=== PATIENT | male | born 1980 ===

== ENCOUNTER 2024-04-18 03:00 | Outpatient (CLI) | payer BC, SELFPAY ==
--- OUTSIDE RECORDS SUMMARY | 2024-04-18 03:03 | XMS_ITS | Continuity of Care Document ---
Author Name Unknown Organization [facility] Address [address] [place] [id number] Encounter [facility] FIN NBR [id number] Date(s): 10/20/22 - 10/20/[address] [address]- Discharge Disposition: Home or Self Care Attending Physician: Sandra Rayo APRN Admitting Physician: Sandra Rayo APRN
--- OUTSIDE RECORDS SUMMARY | 2024-04-18 03:03 | XMS_ITS | Continuity of Care Document ---
Author Name Unknown Organization [facility] Address [address] [place] [address] Encounter LTTL_OK FIN NBR [id number] Date(s): 03/02/24 - 03/05/24 [facility] [address] [place], [place] [address] Encounter Diagnosis Hematochezia(Discharge Diagnosis) - 03/03/24 Anemia due to blood loss(Discharge Diagnosis) - 03/03/24 Partial obstruction of colon(Discharge Diagnosis) - 03/02/24 Neoplasm of splenic flexure of colon(Discharge Diagnosis) - 03/02/24 Discharge Disposition: Home or Self Care Attending Physician: Julio Hermosillo MD Admitting Physician: Julio Hermosillo MD Allergies, Adverse Reactions, Alerts No Known Allergies Assessment and Plan Extracted from: Title:Discharge Note Author:Brian Palmer Date:03/05/24 Discharge Plan 1.??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 ??Has had no ongoing hematochezia.?Despite concern for partial colonic obstruction, he was able to tolerate a??colon prep??without issue.?? Intermittent colonoscopy yesterday which demonstrated a mass??in the region of the splenic flexure??which was??partially obstructing and??could not be traversed with the colonoscope. ??Biopsies were taken and the site was tattooed.?? We discussed the strategy for management. ??Given his young age and??significant family history, I recommend evaluation by a colorectal surgeon at a??cancer center.?? This will allow for appropriate consideration of genetic testing and??discussion of the extent of potential resection if he is at high risk for??synchronous or metachronous cancers.?Ace demonstrated good understanding with this plan. ??He is tolerating a diet well. ??I recommend that he continue??a low residue diet and??MiraLAX daily.?? In the absence of ongoing bleeding or??progression of obstructive symptoms, he we have the time to accommodate??further evaluation and discussion of surgical options.?? Will plan to discharge home??today. ??I will send an urgent referral to [facility] colorectal surgery as discussed.?? I will forward the pathology results from??colon biopsies??when available. Orders: MiraLax, 17 g = 1 packets, Oral, Powder-Recon, Daily, PRN constipation, First Dose: 03/05/24 8:39:00 EDT, Routine MiraLax, 17 g = 1 packets, Oral, Daily, PRN constipation, 0 Refill(s) Diet Order, 03/05/24 8:39:00 EDT, Low Residue Discharge Disposition, 03/05/24 10:20:00 EDT, Home Independently Discharge Patient, 03/05/24 10:20:00 EDT [facility] Nursing Task, 03/05/24 10:20:00 EDT, Stop date 03/05/24 10:20:00 EDT, Check with pharmacy / [facility] for home meds prior to discharge Follow Up With When Contact Information Julio Hermosillo MD Within 1 month, only if needed [facility] [address] [place] [id number]- Additional Instructions: Extracted from: Title:Progress/SOAP Note Author:Julio welsh MD Date:03/05/24 1.??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 ?? 2.??Partial obstruction of colon??K56.600 Ordered: Pathology Request, AP Specimen, RT Collect, Collected, 03/04/24 8:43:00 EDT, Once by TR Lab Collect, Print Label, Neoplasm of unspecified behavior of digestive system Iron deficiency anemia secondary to blood loss (chronic) Partial intestinal obstruction... ?? 3.??Iron deficiency anemia secondary to blood loss (chronic)??D50.0,??Anemia due to blood loss??D50.0 Ordered: Pathology Request, AP Specimen, RT Collect, Collected, 03/04/24 8:43:00 EDT, Once by TR Lab Collect, Print Label, Neoplasm of unspecified behavior of digestive system Iron deficiency anemia secondary to blood loss (chronic) Partial intestinal obstruction... ?? 4.??Hematochezia??K92.1 ??Ace Todd is a 43-year-old male??admitted with hematochezia, vomiting, and??CT evidence concerning for??neoplasm of the colon at splenic flexure causing partial obstruction.?He had symptomatic anemia for which she was transfused 2 units PRBCs. ??Has had no ongoing hematochezia.?Despite concern for partial colonic obstruction, he was able to tolerate a??colon prep??without issue.?? Intermittent colonoscopy yesterday which demonstrated a mass??in the region of the splenic flexure??which was??partially obstructing and??could not be traversed with the colonoscope. ??Biopsies were taken and the site was tattooed.?? We discussed the strategy for management. ??Given his young age and??significant family history, I recommend evaluation by a colorectal surgeon at a??cancer center.?? This will allow for appropriate consideration of genetic testing and??discussion of the extent of potential resection if he is at high risk for??synchronous or metachronous cancers.?Ace demonstrated good understanding with this plan. ??He is tolerating a diet well. ??I recommend that he continue??a low residue diet and??MiraLAX daily.?? In the absence of ongoing bleeding or??progression of obstructive symptoms, he we have the time to accommodate??further evaluation and discussion of surgical options.?? Will plan to discharge home??today. ??I will send an urgent referral to [facility] colorectal surgery as discussed.?? I will forward the pathology results from??colon biopsies??when available. Ordered: Pathology Request, AP Specimen, RT Collect, Collected, 03/04/24 8:43:00 EDT, Once by TR, Lab Collect, Print Label, Neoplasm of unspecified behavior of digestive system Iron deficiency anemia secondary to blood loss (chronic) Partial intestinal obstruction... ?? Orders: MiraLax, 17 g = 1 packets, Oral, Powder-Recon, Daily, PRN constipation, First Dose: 03/05/24 8:39:00 EDT, Routine Diet Order, 03/05/24 8:39:00 EDT, Low Residue Extracted from: Title:H & P Author:Julio Hermosillo MD Brennen e:03/02/24 1.??Partial obstruction of c toya??K56.600 Ordered: PSO Admit to Inpatient, [facility], Inpatient, Julio Hermosillo MD, 03/03/24 0:21:00 EDT, 03/03/24 0:21:00 EDT, 03/03/24 0:21:00 EDT, Less than 96 hours ?? 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 ??He has CT evidence of??partial colon obstruction. ??He is nontoxic-appearing and is passing flatus. ??His last bowel movement was primarily blood. ??He has had no constipation to the up to this point.?? Despite that, his CT is concerning for progressive obstruction.?? The??site of??obstruction is an area of thickening at the splenic flexure concerning for malignancy.?? I discussed these findings with Ace and his significant other.?? I am concerned that he has a??partial obstructing colon cancer and will need surgery.?? This will likely involve??diverting ostomy of some sort??with or without resection of the primary tumor??depending on its appearance intraoperatively.?Plan for admission,??bowel rest, IV fluid resuscitation,??serial hemoglobin,??and to complete staging workup??with CT chest prior to likely??surgery??tomorrow.?Ace demonstrated good understanding and agreement. Ordered: PSO Admit to Inpatient, [facility], Inpatient, Julio Hermosillo MD, 03/03/24 0:21:00 EDT, 03/03/24 0:21:00 EDT, 03/03/24 0:21:00 EDT, Less than 96 hours ?? Orders: acetaminophen, 1,000 mg = 100 mL, IV Piggyback, Injection, every 6 hr, PRN pain, mild, First Dose: 03/03/24 0:28:00 EDT, Routine HYDROmorphone, 0.25 mg = 0.25 mL, IV Push, Injection, every 2 hr, PRN pain, severe, First Dose: 03/03/24 0:28:00 EDT, Routine Lactated Ringers Injection 1,000 mL, Total Volume (mL): 1,000, 1,000 mL, Soln- IV, IV, 150 mL/hr, Start Date: 03/03/24 0:28:00 EDT, 61 kg, Populate Charting Weight From Order, 1.73, m2 naloxone, 0.1 mg = 0.25 mL, IV Push, Injection, every 5 min, PRN other (see comment), First Dose: 03/03/24 0:28:00 EDT, Routine ondansetron, 4 mg = 2 mL, IV Push, Vial, every 6 hr, PRN nausea/vomiting, First Dose: 03/03/24 0:28:00 EDT, Routine ondansetron, 4 mg = 1 tab, Oral, Tab-Dis, every 6 hr, PRN nausea/vomiting, First Dose: 03/03/24 0:28:00 EDT, Routine prochlorperazine, 5 mg = 1 mL, IV Push, Vial, every 4 hr, PRN nausea/vomiting, First Dose: 03/03/24 0:28:00 EDT, Routine prochlorperazine, 25 mg = 1 supp, Rectal, Supp, every 12 hr, PRN nausea/vomiting, First Dose: 03/03/24 0:28:00 EDT, Routine prochlorperazine, 10 mg = 2 tab, Oral, Tab, every 6 hr, PRN nausea/vomiting, First Dose: 03/03/24 0:28:00 EDT, Routine sodium chloride 0.9% flush, 10 mL, IV Flush, Injection, every 8 hr, First Dose: 03/03/24 1:00:00 EDT, Routine sodium chloride 0.9% flush, 10 mL, IV Flush, Injection, As Directed, First Dose: 03/03/24 0:28:00 EDT, Physician Stop, Routine ABO/Rh Echo, Blood, Routine, 03/03/24 6:00:00 EDT, Once, Lab Collect ABSC Echo, Blood, Routine, 03/03/24 6:00:00 EDT, Once, Lab Collect Ambulate, 03/03/24 0:28:00 EDT, Constant order Basic Metabolic Panel, Blood, Routine, 03/03/24 0:29:00 EDT, every morning, for 3 days, Lab Collect CBC w/ Diff, Blood, Routine, 03/03/24 0:29:00 EDT, every morning, for 3 days, Lab Collect CEA, Blood, Add On, 03/03/24 0:28:00 EDT, Once, Lab Collect Contraindicated, 03/03/24 0:28:00 EDT, Contraindicated due to Medical Diagnosis / Will re- evaluate as Patient condition changes Diet Order, 03/03/24 0:28:00 EDT, NPO Incentive Spirometry Nursing, 03/03/24 0:28:00 EDT Intake and Output, 03/03/24 0:28:00 EDT, every 12 hr (linda), q shift, 03/03/24 9:00:00 EDT Patient Condition, 03/03/24 0:28:00 EDT, Condition Good/ Stable Peripheral IV Care, 03/03/24 0:28:00 EDT, Stop date 03/03/24 0:28:00 EDT, Complete with shift assessments and PRN Peripheral IV Insertion, 03/03/24 0:28:00 EDT, Upon admission if not in place prior to admit Resuscitation Status, 03/03/24 0:28:00 EDT, Full Code Sequential Compression Devices (SCD's), 03/03/24 0:28:00 EDT, Constant Order, 03/03/24 0:28:00 EDT Sequential Compression Devices (SCD's), 03/03/24 0:28:00 EDT, Constant Order, 03/03/24 0:28:00 EDT Up ad Delisa, 03/03/24 0:28:00 EDT, Constant Order, at nurse's discretion, 03/03/24 0:28:00 EDT Vital Signs, 03/03/24 0:28:00 EDT, every 4 hr ([facility]) Future Appointments Diagnostic Tests Pending * Pathology Request 03/04/24 Functional Status 03/05/24 Living Environment Living Situation: Current Home Treatments: Home Devices/Equipment Professional Skilled Services: Special Services and Community Resources: None Sensory Deficits: Performed by: Camille Marquez-03/03/24 10:54:00 Living Situation: Home independently, Home with family care Current Home Treatments: Home Devices/Equipment Professional Skilled Services: Special Services and Community Resources: Sensory Deficits: Performed by: Felipe Floyd RN-03/03/24 02:04:00 Lives In Multilevel home Lives With Child(yumiko), Significant other Living Situation Home independently, Home with family longterm Barriers None 03/05/24 Special Services and Community Resources None 03/04/24 Lunch Percent 100 03/04/24 ADLs Independent Activity Status ADL Ambulating in room, HOB elevated Personal Care Provided Other: pt indepen dent with ADL's 03/04/24 Anti-Embolism Device Activity: Applied Anti-Embolism Site Condition: No complic ations 03/04/24 Antiembolism Device Intermittent pneumat ic compression devices, knee high, bilat Medications acetaminophen 500 mg oral tablet 500 mg = 1 tab, Oral, BID, PRN as needed for pain, # 100 tab, 0 Refill(s) Start Date: 03/03/24 Status: Ordered MiraLax 17 g = 1 packets, Oral, Daily, PRN constipation, 0 Refill(s) Start Date: 03/05/24 Status: Ordered pantoprazole 40 mg oral delayed release tablet 40 mg = 1 tab, Oral, Daily, 30 minutes before evening meal, X 30 days, # 30 tab, 11 Refill(s), 01/26/25 11:03:00 AM CDT, Pharmacy: [id number], 177.8, cm, 02/01/24 11:36:00 EDT, Height, 61, kg, 02/01/24 11:42:00 EDT, Weight Dosing Start Date: 02/01/24 Stop Date: 01/26/25 Status: Ordered Mental Status 03/02/24 Eye Opening Response [place] Spontaneous ly Best Verbal Response [place] Oriented Best Motor Response Moses Obeys comman ds [place] Coma Score 15 Problem List Condition Confirmation Course Effective Dates Status Health St atus Informant Family history of colon cancer in father Confirmed Active GERD (gastroesophageal reflux disease) Confirmed Active Hematochezia Confirmed Active Melena Confirmed Active Procedures Procedure Date Related Diagnosis Body Site Status Colonoscopy Biopsy 1 03/04/24 Comp leted 1auto-populated from documented surgical case Results Laboratory List Name Date Automated Diff 03/05/24 .Morphology (LTTL) 03/05/24 Basic Metabolic Panel (BMP) 03/05/24 CBC w/ Diff 03/05/24 Automated Diff 03/04/24 .Morphology (LTTL) 03/04/24 Basic Metabolic Panel (BMP) 03/04/24 CBC w/ Diff 03/04/24 Hemoglobin and Hematocrit 03/03/24 .Morphology (LTTL) 03/03/24 Automated Diff 03/03/24 Basic Metabolic Panel (BMP) 03/03/24 CBC w/ Diff 03/03/24 Red Blood Cells 03/03/24 ABO/Rh Echo 03/03/24 ABSC Echo (Antibody Screen Echo) 03/03/24 Urinalysis with Micro if Indicated and C ulture if Indicated 03/02/24 CEA 03/02/24 Lactic Acid 03/02/24 .Morphology (LTTL) 03/02/24 Comprehensive Metabolic Panel (CMP) 03/02 Lipase Level 03/02/24 Magnesium Level 03/02/24 Most recent to oldest [Reference Range]: 1 2 3 WBC [4.8-10.8 K/mcL] 6.2 K/mcL (03/05/24 6:00 AM) 5.8 K/mcL (03/04/24 6:14 AM) 6.1 K/mcL (03/03/24 8:00 AM) RBC [4.70-6.10 Million/mcL] 3.21 Million/mcL *LOW* (03/05/24 6:00 AM) 3.43 Million/mcL *LOW* (03/04/24 6:14 AM) 2.75 Million/mcL *LOW* (03/03/24 8:00 AM) Neutro Auto [42.2-75.2 %] 69.2 % (03/05/24 6:00 AM) 69.9 % (03/04/24 6:14 AM) 73.3 % (03/03/24 8:00 AM) Lymph Auto [20.5-51.1 %] 18.7 % *LOW* (03/05/24 6:00 AM) 21.2 % (03/04/24 6:14 AM) 19.4 % *LOW* (03/03/24 8:00 AM) [place] Auto [1.7-9.3 %] 10.1 % *HI* (03/05/24 6:00 AM) 6.9 % (03/04/24 6:14 AM) 6.1 % (03/03/24 8:00 AM) Basophil Auto [0.0-0.8 %] 0.3 % (03/05/24 6:00 AM) 0.6 % (03/04/24 6:14 AM) 0.4 % (03/03/24 8:00 AM) BUN [7-25 mg/dL] 5 mg/dL *LOW* (03/05/24 6:00 AM) 8 mg/dL (03/04/24 6:14 AM) 18 mg/dL (03/03/24 8:00 AM) UA Color [Yellow] Yellow (03/02/24 11:34 PM) Glucose Level [70-109 mg/dL] 110 mg/dL *HI* (03/05/24 6:00 AM) 84 mg/dL (03/04/24 6:14 AM) 111 mg/dL *HI* (03/03/24 8:00 AM) Potassium Level [3.5-5.1 mmol/L] 3.8 mmol/L (03/05/24 6:00 AM) 3.5 mmol/L (03/04/24 6:14 AM) 3.7 mmol/L (03/03/24 8:00 AM) Baso Absolute [0.0-0.2 K/mcL] 0.0 K/mcL (03/05/24 6:00 AM) 0.0 K/mcL (03/04/24 6:14 AM) 0.0 K/mcL (03/03/24 8:00 AM) MCV [80.0-94.0 fL] 78.2 fL *LOW* (03/05/24 6:00 AM) 79.1 fL *LOW* (03/04/24 6:14 AM) 76.5 fL *LOW* (03/03/24 8:00 AM) UA Urobilinogen [0.2] 0.2 (03/02/24 11:34 PM) RBC Morph [Normal] Abnormal *ABN* (03/05/24 6:00 AM) Abnormal *ABN* (03/04/24 6:14 AM) Abnormal *ABN* (03/03/24 8:00 AM) UA Bili [Negative] Negative (03/02/24 11:34 PM) CEA [0.1-3.0 ng/mL] 0.2 ng/mL 1 (03/02/24 9:40 PM) UA Ketones [Negative] 15 *ABN* (03/02/24 11:34 PM) AST [13-39 IntlUnit/L] 10 IntlUnit/L *LOW* (03/02/24 9:39 PM) ALT [7-52 IntlUnit/L] 11 IntlUnit/L (03/02/24 9:39 PM) MCHC [32.0-37.0 g/dL] 34.2 g/dL (03/05/24 6:00 AM) 33.4 g/dL (03/04/24 6:14 AM) 32.7 g/dL (03/03/24 8:00 AM) Osmolality [275-295 mOsm/kg] 281 mOsm/kg (03/05/24 6:00 AM) 275 mOsm/kg (03/04/24 6:14 AM) 282 mOsm/kg (03/03/24 8:00 AM) Sodium Level [136-145 mmol/L] 142 mmol/L (03/05/24 6:00 AM) 139 mmol/L (03/04/24 6:14 AM) 140 mmol/L (03/03/24 8:00 AM) UA Leuk Est [Negative] Negative (03/02/24 11:34 PM) Lymph Absolute [1.2-3.4 K/mcL] 1.2 K/mcL (03/05/24 6:00 AM) 1.2 K/mcL (03/04/24 6:14 AM) 1.2 K/mcL (03/03/24 8:00 AM) UA Nitrite [Negative] Negative (03/02/24 11:34 PM) UA Glucose [Negative] Negative (03/02/24 11:34 PM) Hct [42.0-52.0 %] 25.1 % *LOW* (03/05/24 6:00 AM) 27.1 % *LOW* (03/04/24 6:14 AM) 28.5 % *LOW* (03/03/24 4:25 PM) Microcyte 1+ *ABN* (03/05/24 6:00 AM) 1+ *ABN* (03/04/24 6:14 AM) 1+ *ABN* (03/03/24 8:00 AM) Lipase Level [11-82 unit/L] 6 unit/L 2 *LOW* (03/02/24 9:39 PM) Hypochromia 1+ *ABN* (03/05/24 6:00 AM) 1+ *ABN* (03/04/24 6:14 AM) 1+ *ABN* (03/03/24 8:00 AM) Calcium Level [8.6-10.3 mg/dL] 8.0 mg/dL *LOW* (03/05/24 6:00 AM) 8.0 mg/dL *LOW* (03/04/24 6:14 AM) 7.9 mg/dL *LOW* (03/03/24 8:00 AM) [place] Absolute [0.1-0.6 K/mcL] 0.6 K/mcL (03/05/24 6:00 AM) 0.4 K/mcL (03/04/24 6:14 AM) 0.4 K/mcL (03/03/24 8:00 AM) Albumin Level [3.5-5.7 g/dL] 3.5 g/dL (03/02/24 9:39 PM) Protein Total [6.4-8.9 g/dL] 6.5 g/dL (03/02/24 9:39 PM) UA Protein [Negative] Negative (03/02/24 11:34 PM) MCH [27.0-31.0 pg] 26.8 pg *LOW* (03/05/24 6:00 AM) 26.4 pg *LOW* (03/04/24 6:14 AM) 25.0 pg *LOW* (03/03/24 8:00 AM) Magnesium Level [1.9-2.7 mg/dL] 2.0 mg/dL (03/02/24 9:39 PM) Neutro Absolute [1.4-6.5 K/mcL] 4.3 K/mcL (03/05/24 6:00 AM) 4.0 K/mcL (03/04/24 6:14 AM) 4.5 K/mcL (03/03/24 8:00 AM) Bilirubin Total [0.3-1.0 mg/dL] 1.1 mg/dL *HI* (03/02/24 9:39 PM) Hgb [14.0-18.0 g/dL] 8.6 g/dL *LOW* (03/05/24 6:00 AM) 9.1 g/dL *LOW* (03/04/24 6:14 AM) 9.5 g/dL 3 *LOW* (03/03/24 4:25 PM) Alk Phos [34-104 IntlUnit/L] 114 IntlUnit/L *HI* (03/02/24 9:39 PM) UA Blood [Negative] Negative (03/02/24 11:34 PM) MPV [7.4-10.4 fL] 6.7 fL *LOW* (03/05/24 6:00 AM) 6.5 fL *LOW* (03/04/24 6:14 AM) 6.3 fL *LOW* (03/03/24 8:00 AM) UA Spec Grav [1.001-1.030] 1.010 (03/02/24 11:34 PM) Polychrom 1+ *ABN* (03/03/24 8:00 AM) Platelets [130-400 K/mcL] 226 K/mcL (03/05/24 6:00 AM) 230 K/mcL (03/04/24 6:14 AM) 260 K/mcL (03/03/24 8:00 AM) CO2 [21-31 mmol/L] 31 mmol/L (03/05/24 6:00 AM) 26 mmol/L (03/04/24 6:14 AM) 25 mmol/L (03/03/24 8:00 AM) Eos Absolute [0.0-0.2 K/mcL] 0.1 K/mcL (03/05/24 6:00 AM) 0.1 K/mcL (03/04/24 6:14 AM) 0.0 K/mcL (03/03/24 8:00 AM) Lactic Acid Lvl [0.5-2.2 mmol/L] 1.1 mmol/L (03/02/24 9:40 PM) UA pH [5.00-9.00] 5.50 (03/02/24 11:34 PM) UA Appear [Clear] Clear (03/02/24 11:34 PM) Chloride Level [98-107 mmol/L] 107 mmol/L (03/05/24 6:00 AM) 106 mmol/L (03/04/24 6:14 AM) 109 mmol/L *HI* (03/03/24 8:00 AM) RBC Product Ready Done (03/03/24 6:45 AM) RDW-CV [11.5-14.5 %] 15.4 % *HI* (03/05/24 6:00 AM) 15.0 % *HI* (03/04/24 6:14 AM) 14.6 % *HI* (03/03/24 8:00 AM) A/G Ratio [1.0-2.5 g/dL] 1.2 g/dL (03/02/24 9:39 PM) BUN/Creat Ratio [8.0-20.0] 7.1 *LOW* (03/05/24 6:00 AM) 11.4 (03/04/24 6:14 AM) 22.5 *HI* (03/03/24 8:00 AM) Globulin [2.3-3.5 g/dL] 3.0 g/dL (03/02/24 9:39 PM) Slide Review Morph Only (03/05/24 6:00 AM) Morph Only (03/04/24 6:14 AM) Morph Only (03/03/24 8:00 AM) Urine Srce Clean Catch (03/02/24 11:34 PM) Plt Large Few *ABN* (03/04/24 6:14 AM) Few *ABN* (03/02/24 9:39 PM) Anisocyte 1+ (03/03/24 8:00 AM) Creatinine Level [0.70-1.30 mg/dL] 0.70 mg/dL (03/05/24 6:00 AM) 0.70 mg/dL (03/04/24 6:14 AM) 0.80 mg/dL (03/03/24 8:00 AM) Plt Estimation Normal (03/05/24 6:00 AM) Normal (03/04/24 6:14 AM) Normal (03/03/24 8:00 AM) ABO/Rh Echo A POS *Unknown* (03/03/24 6:07 AM) Anion Gap [3.0-12.0] 4.0 (03/05/24 6:00 AM) 7.0 (03/04/24 6:14 AM) 6.0 (03/03/24 8:00 AM) Eos, Auto [0.00-3.00 %] 1.70 % (03/05/24 6:00 AM) 1.40 % (03/04/24 6:14 AM) 0.80 % (03/03/24 8:00 AM) eGFR CKD-EPI [>=60 mL/min/1.73 m2] 117 mL/min/1.73 m2 (03/05/24 6:00 AM) 117 mL/min/1.73 m2 (03/04/24 6:14 AM) 112 mL/min/1.73 m2 (03/03/24 8:00 AM) ABSC Echo Negative ABSC (03/03/24 6:07 AM) 1Interpretive Data: The concentration of Carcinoembryonic Antigen??(CEA) determined from different manufactures and assay methods will vary due to differences in the method and reagent specificity. Values obtained by different methods cannot be used interchangeably and may not be comparable. This deepak Kaitlin Luann Access paramagnetic particle, chemiluminescent immunoassay. 2Interpretive Data: A-ictrkv-p-benzoquinone imine (meabolite of Acetaminophen) will generate erroneously low lipase results in samples for patients that have taken toxic doses of acetaminophen. 3Result Comment: Results verified by repeat analysis. Radiology Reports * Exam Date Time Procedure Performing Provider Status 03/03/24 12:[address] Chest w/ Contrast Nakia Guidry; Auth (Verified) Notes: (CT Chest w/ Contrast) Reason For Exam: Evaluate for metstatis CT Chest w/ Contrast PROCEDURE INFORMATION: Exam: CT Chest With Contrast; Diagnostic Exam date and time: 03/03/2024 12:27 AM Age: 43 years old Clinical indication: Condition or disease; Other: Evaluate for mets; Additional info: Evaluate for metstatis TECHNIQUE: Imaging protocol: Diagnostic computed tomography of the chest with contrast. Radiation optimization: All CT scans at this facility use at least one of these dose optimization techniques: automated exposure control; mA and/or kV adjustment per patient size (includes targeted exams where dose is matched to clinical indication); or iterative reconstruction. Contrast material: ISOVUE 300; Contrast volume: 100 ml; Contrast route: INTRAVENOUS (IV); COMPARISON: CT ABD/PELVIS W CONTRAST 03/02/2024 9:42 PM FINDINGS: Lungs: No evidence of nodules or metastatic disease. No evidence endobronchial lesion. No evidence of focal parenchymal air space disease. Pleural spaces: No pneumothorax. No pleural effusion. Heart: No evidence of filling defects in the cardiac chambers. Heart appears within normal limits. No significant pericardial effusion. Lymph nodes: Unremarkable. No enlarged lymph nodes. Vasculature: No evidence of thoracic aortic dissection. Bones/joints: Unremarkable. No acute fracture. Soft tissues: Unremarkable. IMPRESSION: 1. No evidence of metastatic disease. 2. No evidence of focal consolidation. THIS DOCUMENT HAS BEEN ELECTRONICALLY SIGNED BY FRANCHESCA ROBLES MD on 03/03/2024 12:53 AM Final Signed by: Franchesca Robles MD Signed (Electronic Signature): 03/03/2024 0:53 am * Exam Date Time Procedure Performing Provider Status 03/02/24 9:[address] Abdomen and Pelvis w/ Contrast Jennie Brennan od; Auth (Verified) Notes: (CT Abdomen and Pelvis w/ Contrast) Reason For Exam: abd pain RLQ CT Abdomen and Pelvis w/ Contrast PROCEDURE INFORMATION: Exam: CT Abdomen And Pelvis With Contrast Exam date and time: 03/02/2024 9:42 PM Age: 43 years old Clinical indication: Abdominal pain; Localized; Right lower quadrant (rlq); Additional info: Abd pain rlq TECHNIQUE: Imaging protocol: Computed tomography of the abdomen and pelvis with contrast. Radiation optimization: All CT scans at this facility use at least one of these dose optimization techniques: automated exposure control; mA and/or kV adjustment per patient size (includes targeted exams where dose is matched to clinical indication); or iterative reconstruction. Contrast material: ISOVUE 300; Contrast volume: 100 ml; Contrast route: INTRAVENOUS (IV); COMPARISON: No relevant prior studies available. FINDINGS: Liver: Normal. No mass. Gallbladder and bile ducts: Normal. No calcified stones. No ductal dilation. Pancreas: Normal. No ductal dilation. Spleen: Normal. No splenomegaly. Adrenal glands: Normal. No mass. Kidneys and ureters: Normal. No hydronephrosis. Stomach and bowel: Moderate air-fluid distension of the cecum, ascending, transverse colon up to site 6 cm length area circumferential up to 13 mm wall thickening and inhomogeneity of the surrounding fat involving splenic flexure colon; colon distal to mass collapsed. More proximal colon prior to site of wall thickening partially obstructed (lumen appears patent) by stricturing of this area. Cecum distended up to 8 cm. No evidence of small bowel obstruction. Appendix: Visualized portion appendix normal. Intraperitoneal space: Unremarkable. No free air. No significant fluid collection. Vasculature: Unremarkable. No abdominal aortic aneurysm. Lymph nodes: Unremarkable. No enlarged lymph nodes. Urinary bladder: Unremarkable as visualized. Reproductive: Prostate appears within normal limits. Bones/joints: Unremarkable. No acute fracture. Soft tissues: Unremarkable. IMPRESSION: 1. Focal circumferential mass vs inflammation involving splenic flexure colon contributing to partial obstruction more proximal colon. 2. No evidence of small bowel obstruction. THIS DOCUMENT HAS BEEN ELECTRONICALLY SIGNED BY FRANCHESCA ROBLES MD on 03/02/2024 10:27 PM Final Signed by: Franchesca Robles MD Signed (Electronic Signature): 03/02/2024 10:27 pm Vital Signs Most recent to oldest [Reference Range]: 1 2 3 Temperature Temporal Artery [36-38 Deg C] 36.9 Deg C (03/05/24 7:40 AM) 36.7 Deg C (03/05/24 4:02 AM) 37.1 Deg C (03/04/24 11:44 PM) Temperature Temporal Artery (DegF) [97.3-100 Deg F] 98.06 Deg F (03/05/24 4:02 AM) 98.78 Deg F (03/04/24 11:44 PM) 97.34 Deg F (03/04/24 7:18 PM) Peripheral Pulse Rate [60-100 bpm] 78 bpm (03/05/24 7:40 AM) 74 bpm (03/05/24 4:02 AM) 81 bpm (03/04/24 11:44 PM) Heart Rate Monitored [60-100 bpm] 82 bpm (03/04/24 1:41 PM) 76 bpm (03/04/24 12:36 PM) 80 bpm (03/04/24 11:33 AM) Respiratory Rate [12-24 br/min] 18 br/min (03/05/24 7:40 AM) 18 br/min (03/05/24 4:02 AM) 20 br/min (03/04/24 11:44 PM) Blood Pressure [90-140/60-90 mmHg] 103/71mmHg (03/05/24 7:40 AM) 96/62mmHg (03/05/24 4:02 AM) 94/61mmHg (03/04/24 11:44 PM) Mean Arterial Pressure, Cuff [65-140 mmHg] 73 mmHg (03/05/24 4:02 AM) 72 mmHg (03/04/24 11:44 PM) 74 mmHg (03/04/24 7:18 PM) Mean Arterial Pressure Cuff 75 mmHg (03/04/24 1:41 PM) 82 mmHg (03/04/24 11:33 AM) 74 mmHg (03/04/24 10:42 AM) Blood Pressure Location Right arm (03/04/24 7:18 PM) Right arm (03/04/24 3:27 PM) Left arm (03/04/24 1:41 PM) Blood Pressure Method Automatic (03/04/24 7:18 PM) Automatic (03/04/24 1:41 PM) Automatic (03/04/24 12:36 PM) Weight 61 kg (03/02/24 9:04 PM) Weight Dosing 61.000 kg (03/02/24 9:04 PM) Height 177 cm (03/02/24 9:04 PM) Body Mass Index 19.47 kg/m2 (03/02/24 9:04 PM) Social History Social History Type Response Tobacco Never tobacco user T obacco Use:. [address] [facility] Discharge Instructions Patient Education 03/05/2024 09:27:12 Colonoscopy, Adult, Care After Colonoscopy, Adult, Care After The following information offers guidance on how to care for yourself after your procedure. Your health care provider may also give you more specific instructions. If you have problems or questions, contact your health care provider. What can I expect after the procedure? After the procedure, it is common to have: ??? A small amount of blood in your stool for 24 hours after the procedure. ??? Some gas. ??? Mild cramping or bloating of your abdomen. Follow these instructions at home: Eating and drinking ??? Drink enough fluid to keep your urine pale yellow. ??? Follow instructions from your health care provider about eating or drinking restrictions. ??? Resume your normal diet as told by your health care provider. Avoid heavy or fried foods that are hard to digest. Activity ??? Rest as told by your health care provider. ??? Avoid sitting for a long time without moving. Get up to take short walks every 1???2 hours. This is important to improve blood flow and breathing. Ask for help if you feel weak or unsteady. ??? Return to your normal activities as told by your health care provider. Ask your health care provider what activities are safe for you. Managing cramping and bloating ??? Try walking around when you have cramps or feel bloated. ??? If directed, apply heat to your abdomen as told by your health care provider. Use the heat source that your health care provider recommends, such as a moist heat pack or a heating pad. ??? Place a towel between your skin and the heat source. ??? Leave the heat on for 20???30 minutes. ??? Remove the heat if your skin turns bright red. This is especially important if you are unable to feel pain, heat, or cold. You have a greater risk of getting burned. General instructions ??? If you were given a sedative during the procedure, it can affect you for several hours. Do not drive or operate machinery until your health care provider says that it is safe. ??? For the first 24 hours after the procedure: ??? Do not sign important documents. ??? Do not drink alcohol. ??? Do your regular daily activities at a slower pace than normal. ??? Eat soft foods that are easy to digest. ??? Take fsoc-jke-wbdsdlf and prescription medicines only as told by your health care provider. ??? Keep all follow-up visits. This is important. Contact a health care provider if: ??? You have blood in your stool 2???3 days after the procedure. Get help right away if: ??? You have more than a small spotting of blood in your stool. ??? You have large blood clots in your stool. ??? You have swelling of your abdomen. ??? You have nausea or vomiting. ??? You have a fever. ??? You have increasing pain in your abdomen that is not relieved with medicine. These symptoms may be an emergency. Get help right away. Call 911. ??? Do not wait to see if the symptoms will go away. ??? Do not drive yourself to the hospital. Summary ??? After the procedure, it is common to have a small amount of blood in your stool. You may also have mild cramping and bloating of your abdomen. ??? If you were given a sedative during the procedure, it can affect you for several hours. Do not drive or operate machinery until your health care provider says that it is safe. ??? Get help right away if you have a lot of blood in your stool, nausea or vomiting, a fever, or increased pain in your abdomen. This information is not intended to replace advice given to you by your health care provider. Make sure you discuss any questions you have with your health care provider. Document Revised: 05/24/2022 Document Reviewed: 05/24/2022 [employer] Patient Education ?? 2022 [employer]. 03/05/2024 09:22:47 Gastrointestinal Bleeding Gastrointestinal Bleeding Gastrointestinal (GI) bleeding is bleeding somewhere along the digestive tract, between the mouth and the anus. The digestive tract includes the mouth, esophagus, stomach, small intestine, large intestine, and anus. The large intestine is often called the colon. GI bleeding can be caused by various problems. The severity of these problems can be mild, serious,or life-threatening. If you have GI bleeding, you may find blood in your stools (feces), you may have black stools, or you may vomit blood. You may need to stay in the hospital if there is a lot of bleeding. What are the causes? This condition may be caused by: ??? Inflammation, irritation, or swelling of the esophagus (esophagitis). The esophagus is part of the body that moves food from your mouth to your stomach. ??? Swollen veins in the rectum (hemorrhoids). ??? Tears in the anus (anal fissures). The tears are often caused by passing hard stool. ??? Pouches that form on the colon and may bleed (diverticulosis). ??? Inflammation in areas with diverticulosis. This is called diverticulitis.This can cause pain, fever, and bloody stools. ??? Growths (polyps) or cancer. Colon cancer often starts out as precancerous polyps. ??? Gastritis and ulcers. These may cause bleeding in the upper GI tract, near the stomach. What increases the risk? You are more likely to develop this condition if: ??? You have an infection in your stomach from a type of bacteria called Helicobacter pylori. ??? You take certain medicines, such as: ??? NSAIDs. ??? Aspirin. ??? Selective serotonin reuptake inhibitors (SSRIs). ??? Steroids. ??? Antiplatelet or anticoagulant medicines. ??? You smoke. ??? You drink alcohol. What are the signs or symptoms? Common symptoms of this condition include: ??? Bright red blood in your vomit, or vomit that looks like coffee grounds. ??? Bloody, black, or tarry stools. ??? Bleeding from the lower GI tract will usually cause red or maroon blood in the stools. ??? Bleeding from the upper GI tract may cause black, tarry stools that are often stronger smellingthan usual. ??? In certain cases, if the bleeding is fast enough, the stools may be red. ??? Pain or cramping in the abdomen. How is this diagnosed? This condition may be diagnosed based on: ??? Your medical history and a physical exam. ??? Various tests, such as: ??? Blood tests. ??? Stool tests. ??? X-rays and other imaging tests. ??? Esophagogastroduodenoscopy (EGD). In this test, a flexible, lighted tube is used to look at your esophagus, stomach, and small intestine. ??? Colonoscopy. In this test, a flexible, lighted tube is used to look at your colon. How is this treated? Treatment for this condition depends on the cause of the bleeding. For example: ??? For bleeding from the esophagus, stomach, small intestine, or colon, the health care provider may do a procedure to stop bleeding during your EGD or colonoscopy. ??? Inflammation or infection of the colon can be treated with medicines. ??? Certain rectal problems can be treated with creams, suppositories, or warm baths. ??? Medicines may be given to reduce acid in your stomach. ??? Surgery is sometimes done. ??? Blood transfusions are sometimes needed if a lot of blood has been lost. If there is a lot of bleeding, you will need to stay in the hospital for observation. If bleeding is mild, you may be allowed to go home. Follow these instructions at home: ??? Take wxbs-cnm-krbczcc and prescription medicines only as told by your health care provider. ??? Eat foods that are high in fiber, such as beans, whole grains, and fresh fruits and vegetables.This will help to keep your stools soft. Eating 1???3 prunes each day works well for many people. ??? Drink enough fluid to keep your urine pale yellow. ??? Keep all follow-up visits. This is important. Contact a health care provider if: ??? Your symptoms do not improve with treatment. Get help right away if: ??? Your bleeding does not stop. ??? You feel light-headed or you faint. ??? You feel weak. ??? You have severe cramps in your back or abdomen. ??? You pass large blood clots in your stool. ??? Your symptoms are getting worse. ??? You have chest pain or fast heartbeats. These symptoms may be an emergency. Get help right away. Call 911. ??? Do not wait to see if the symptoms will go away. ??? Do not drive yourself to the hospital. Summary ??? Gastrointestinal (GI) bleeding is bleeding somewhere along the digestive tract, between the mouth and anus. GI bleeding can be caused by various problems. ??? Treatment for this condition depends on the cause of the bleeding. ??? Take heei-dhs-brtnmod and prescription medicines only as told by your health care provider. ??? Get help right away if your bleeding increases, your symptoms are getting worse, or you have new symptoms. ??? Keep all follow-up visits. This is important. This information is not intended to replace advice given to you by your health care provider. Make sure you discuss any questions you have with your health care provider. Document Revised: 05/05/2022 Document Reviewed: 05/05/2022 [employer] Patient Education ?? 2022 [employer]. Follow Up Care 03/02/2024 20:55:58 With:Julio Hermosillo MD Address: [facility] [address] [place] [address] When:1 month only if needed Pharmacology Note * Carl Barnett: PERFORM Event Display: Pharmacy Note Authored Date: [id number] med hx via SS review and pt interview. pt reprots only taking 2 protonix 40mg daily and PRN tylenol. Discharge instructions * Shahnaz Bain: PERFORM Event Display: Discharge Instructions Authored Date: [id number] ACE TODD :1980 Age:43 years Sex:Male Visit Date:03/02/2024 Hospital Discharge Instructions We would like to thank you for allowing us to assist you with your healthcare needs. The following includes patient education materials and information regarding your injury/illness. Your Next Steps Instructions From Your Care Team An urgent referral to [facility] colorectal surgery will be made??for ongoing evaluation and??management of colon??tumor You should continue a??low residue diet??as tolerated.?Protein shakes or??nutritional supplements like boost or Ensure are helpful. Take a stool softener like MiraLAX daily Call or be seen emergently if you develop??lightheadedness, dizziness,??recurrent??bloody stools, or vomiting Discharge Orders Discharge Disposition, 03/05/24 10:20:00 EDT, Home Independently Scheduled Future Appointments Sunday 3:00 PM EDT ?? Sunday 9:30 AM EDT ?? Follow Up Appointments Follow Up with??Julio Hermosillo MD When:??Within 1 month, only if needed Where: [facility] [address] [place], [place] [id number]- The Following Services Have Been Arranged for You Special Services and Community Resources - None Medications What How Much When Why Instructions Next Dose New polyethylene glycol 3350 (MiraLax) 17 Gram Oral (given by mouth) Every day as needed for constipation Unchanged acetaminophen (acetaminophen 500 mg oral tablet) 1 tab Oral (given by mouth) 2 times a day as needed for as needed for pain Unchanged pantoprazole (pantoprazole 40 mg oral delayed release tablet) 1 tab Oral (given by mouth) Every day GI (gastrointestinal bleed) Duration: 30 Days 30 minutes before evening meal ?? Your Summary Your Care Team Admitting Physician - Julio Hermosillo MD Attending Physician - Julio Hermosillo MD Your Diagnosis Neoplasm of splenic flexure of colon Partial obstruction of colon Iron deficiency anemia secondary to blood loss (chronic) Hematochezia Anemia due to blood loss Problems Ongoing - Any problem that you are currently receiving treatment for. Family history of colon cancer in father GERD (gastroesophageal reflux disease) Hematochezia Melena Tobacco user Procedures Performed ???Colonoscopy Biopsy (03/04/2024) Tests Performed/Pending .Morphology (LTTL) ABO/Rh Echo Antibody Screen Echo Automated Diff BMP CBC w/ Diff CEA CMP Crossmatch Hemoglobin and Hematocrit Lactic Acid Lipase Level Magnesium Level Pathology Request?-- Results Pending -- Red Blood Cells Urinalysis with Micro if Indicated and Culture if Indicated CT Abdomen and Pelvis w/ Contrast CT Chest w/ Contrast Discharge Vitals Temperature??(Temporal Artery) 98.4 ??F (36.9 ??C) Heart Rate??(Peripheral) 78 Respiratory Rate?? 18 Blood Pressure?? 103/71?? SpO2?? 97% Allergies No Known Allergies Education Materials Colonoscopy, Adult, Care After The following information offers guidance on how to care for yourself after your procedure. Your health care provider may also give you more specific instructions. If you have problems or questions, contact your health care provider. What can I expect after the procedure? After the procedure, it is common to have: ? A small amount of blood in your stool for 24 hours after the procedure. ? Some gas. ? Mild cramping or bloating of your abdomen. Follow these instructions at home: Eating and drinking ? Drink enough fluid to keep your urine pale yellow. ? Follow instructions from your health care provider about eating or drinking restrictions. ? Resume your normal diet as told by your health care provider. Avoid heavy or fried foods that are hard to digest. Activity ? Rest as told by your health care provider. ? Avoid sitting for a long time without moving. Get up to take short walks every 1???2 hours. This isimportant to improve blood flow and breathing. Ask for help if you feel weak or unsteady. ? Return to your normal activities as told by your health care provider. Ask your health care provider what activities are safe for you. Managing cramping and bloating ? Try walking around when you have cramps or feel bloated. ? If directed, apply heat to your abdomen as told by your health care provider. Use the heat source that your health care provider recommends, such as a moist heat pack or a heating pad. ? Place a towel between your skin and the heat source. ? Leave the heat on for 20???30 minutes. ? Remove the heat if your skin turns bright red. This is especially important if you are unable to feel pain, heat, or cold. You have a greater risk of getting burned. General instructions ? If you were given a sedative during the procedure, it can affect you for several hours. Do not drive or operate machinery until your health care provider says that it is safe. ? For the first 24 hours after the procedure: ? Do not sign important documents. ? Do not drink alcohol. ? Do your regular daily activities at a slower pace than normal. ? Eat soft foods that are easy to digest. ? Take gryo-zlp-bzfncpx and prescription medicines only as told by your health care provider. ? Keep all follow-up visits. This is important. Contact a health care provider if: ? You have blood in your stool 2???3 days after the procedure. Get help right away if: ? You have more than a small spotting of blood in your stool. ? You have large blood clots in your stool. ? You have swelling of your abdomen. ? You have nausea or vomiting. ? You have a fever. ? You have increasing pain in your abdomen that is not relieved with medicine. These symptoms may be an emergency. Get help right away. Call 911. ? Do not wait to see if the symptoms will go away. ? Do not drive yourself to the hospital. Summary ? After the procedure, it is common to have a small amount of blood in your stool. You may also have mild cramping and bloating of your abdomen. ? If you were given a sedative during the procedure, it can affect you for several hours. Do not drive or operate machinery until your health care provider says that it is safe. ? Get help right away if you have a lot of blood in your stool, nausea or vomiting, a fever, or increased pain in your abdomen. This information is not intended to replace advice given to you by your health care provider. Make sure you discuss any questions you have with your health care provider. Document Revised: 05/24/2022 Document Reviewed: 05/24/2022 [employer] Patient Education ?? [employer] Gastrointestinal Bleeding Gastrointestinal (GI) bleeding is bleeding somewhere along the digestive tract, between the mouth and the anus. The digestive tract includes the mouth, esophagus, stomach, small intestine, large intestine, and anus. The large intestine is often called the colon. GI bleeding can be caused by various problems. The severity of these problems can be mild, serious,or life-threatening. If you have GI bleeding, you may find blood in your stools (feces), you may have black stools, or you may vomit blood. You may need to stay in the hospital if there is a lot of bleeding. What are the causes? This condition may be caused by: ? Inflammation, irritation, or swelling of the esophagus (esophagitis). The esophagus is part of the body that moves food from your mouth to your stomach. ? Swollen veins in the rectum (hemorrhoids). ? Tears in the anus (anal fissures). The tears are often caused by passing hard stool. ? Pouches that form on the colon and may bleed (diverticulosis). ? Inflammation in areas with diverticulosis. This is called diverticulitis.This can cause pain, fever, and bloody stools. ? Growths (polyps) or cancer. Colon cancer often starts out as precancerous polyps. ? Gastritis and ulcers. These may cause bleeding in the upper GI tract, near the stomach. What increases the risk? You are more likely to develop this condition if: ? You have an infection in your stomach from a type of bacteria called Helicobacter pylori. ? You take certain medicines, such as: ? NSAIDs. ? Aspirin. ? Selective serotonin reuptake inhibitors (SSRIs). ? Steroids. ? Antiplatelet or anticoagulant medicines. ? You smoke. ? You drink alcohol. What are the signs or symptoms? Common symptoms of this condition include: ? Bright red blood in your vomit, or vomit that looks like coffee grounds. ? Bloody, black, or tarry stools. ? Bleeding from the lower GI tract will usually cause red or maroon blood in the stools. ? Bleeding from the upper GI tract may cause black, tarry stools that are often stronger smelling than usual. ? In certain cases, if the bleeding is fast enough, the stools may be red. ? Pain or cramping in the abdomen. How is this diagnosed? This condition may be diagnosed based on: ? Your medical history and a physical exam. ? Various tests, such as: ? Blood tests. ? Stool tests. ? X-rays and other imaging tests. ? Esophagogastroduodenoscopy (EGD). In this test, a flexible, lighted tube is used to look at your esophagus, stomach, and small intestine. ? Colonoscopy. In this test, a flexible, lighted tube is used to look at your colon. How is this treated? Treatment for this condition depends on the cause of the bleeding. For example: ? For bleeding from the esophagus, stomach, small intestine, or colon, the health care provider may do a procedure to stop bleeding during your EGD or colonoscopy. ? Inflammation or infection of the colon can be treated with medicines. ? Certain rectal problems can be treated with creams, suppositories, or warm baths. ? Medicines may be given to reduce acid in your stomach. ? Surgery is sometimes done. ? Blood transfusions are sometimes needed if a lot of blood has been lost. If there is a lot of bleeding, you will need to stay in the hospital for observation. If bleeding is mild, you may be allowed to go home. Follow these instructions at home: ? Take vjyq-nym-xgeznis and prescription medicines only as told by your health care provider. ? Eat foods that are high in fiber, such as beans, whole grains, and fresh fruits and vegetables. This will help to keep your stools soft. Eating 1???3 prunes each day works well for many people. ? Drink enough fluid to keep your urine pale yellow. ? Keep all follow-up visits. This is important. Contact a health care provider if: ? Your symptoms do not improve with treatment. Get help right away if: ? Your bleeding does not stop. ? You feel light-headed or you faint. ? You feel weak. ? You have severe cramps in your back or abdomen. ? You pass large blood clots in your stool. ? Your symptoms are getting worse. ? You have chest pain or fast heartbeats. These symptoms may be an emergency. Get help right away. Call 911. ? Do not wait to see if the symptoms will go away. ? Do not drive yourself to the hospital. Summary ? Gastrointestinal (GI) bleeding is bleeding somewhere along the digestive tract, between the mouth and anus. GI bleeding can be caused by various problems. ? Treatment for this condition depends on the cause of the bleeding. ? Take tsyv-lfi-cwmdtkv and prescription medicines only as told by your health care provider. ? Get help right away if your bleeding increases, your symptoms are getting worse, or you have new symptoms. ? Keep all follow-up visits. This is important. This information is not intended to replace advice given to you by your health care provider. Make sure you discuss any questions you have with your health care provider. Document Revised: 05/05/2022 Document Reviewed: 05/05/2022 [employer] Patient Education ?? 2022 [employer]. Medication Information polyethylene glycol 3350?? (mauricio ee ETH il een GLYE kol) ?? ClearLax, GaviLAX, HealthyLax, MiraLax, Natura-Lax, [id number], [employer] ClearLax? What is the most important information I should know about polyethylene glycol 3350? You should not use this medicine if you have a bowel obstruction or intestinal blockage. ??If you have any of these conditions, you could have dangerous or life-threatening side effects from polyethylene glycol 3350. ?? Do not use polyethylene glycol 3350 more than once per day. ??Call your doctor if you are still constipated or irregular after using this medication for 7 days in a row. ?? What is polyethylene glycol 3350? Polyethylene glycol 3350 is a laxative solution that increases the amount of water in the intestinal tract to stimulate bowel movements. ?? Polyethylene glycol 3350 is used as a laxative to treat occasional constipation or irregular bowel movements. ?? Polyethylene glycol 3350 may also be used for purposes not listed in this medication guide. ?? What should I discuss with my healthcare provider before taking polyethylene glycol 3350? You should not use this medicine if you are allergic to polyethylene glycol, or if you have a bowelobstruction or intestinal blockage. ??If you have any of these conditions, you could have dangerousor life-threatening side effects from polyethylene glycol 3350. ?? People with eating disorders (such as anorexia or bulimia) should not use this medication without the advice of a doctor. ?? To make sure this medicine is safe for you, tell your doctor if you have: ?nausea, vomiting, or severe stomach pain; ?ulcerative colitis; ?irritable bowel syndrome; ?kidney disease; or ?if you have had a sudden change in bowel habits that has lasted 2 weeks or longer. ?? FDA category C. ??It is not known whether polyethylene glycol 3350 will harm an unborn baby. Tell your doctor if you are or plan to become while using this medication. ?? It is not known whether polyethylene glycol 3350 passes into breast milk or if it could harm a nursing baby. ??Tell your doctor if you are breast-feeding a baby. ?? How should I take polyethylene glycol 3350? Follow all directions on your prescription label. ??Do not use this medicine in larger or smaller amounts or for longer than recommended. ? To use the powder form of this medicine, measure your dose with the medicine cap on the bottle. ??This cap should contain dose werner on the inside of it. ??Pour the powder into 4 to 8 ounces of a cold or hot beverage such as water, juice, soda, coffee, or tea. ??Stir this mixture and drink it rightaway. ??Do not save for later use. ?? Polyethylene glycol 3350 should produce a bowel movement within 1 to 3 days of using the medication. ??Polyethylene glycol 3350 normally causes loose or even watery stools. ?? Do not use polyethylene glycol 3350 more than once per day. ??Call your doctor if you are still constipated or irregular after using this medication for 7 days in a row. ?? Store at room temperature away from moisture and heat. ?? What happens if I miss a dose? Take the missed dose as soon as you remember. ??Skip the missed dose if it is almost time for your next scheduled dose. ??Do not??take extra medicine to make up the missed dose. ?? What happens if I overdose? Seek emergency medical attention or call the Poison Help line at . ?? What should I avoid while taking polyethylene glycol 3350? Follow your doctor's instructions about any restrictions on food, beverages, or activity. ?? What are the possible side effects of polyethylene glycol 3350? Get emergency medical help if you have??signs of an allergic reaction: ??hives; difficult breathing; swelling of your face, lips, tongue, or throat. ?? Stop taking this medicine and call your doctor at once if you have: ?severe or bloody diarrhea; ?rectal bleeding; ?blood in your stools; or ?severe and worsening stomach pain. ?? Common side effects may include: ?bloating, gas, upset stomach; ?dizziness; or ?increased sweating. ?? This is not a complete list of side effects and others may occur. Call your doctor for medical advice about side effects. You may report side effects to FDA at 3-499-GMC-4131. ?? What other drugs will affect polyethylene glycol 3350? Other drugs may interact with polyethylene glycol 3350, including prescription and qzgo-fiq-wbzoxfleqjsendva, vitamins, and herbal products. ??Tell each of your health care providers about all medicines you use now and any medicine you start or stop using. ?? Where can I get more information? Your pharmacist can provide more information about polyethylene glycol 3350. ?? Remember, keep this and all other medicines out of the reach of children, never share your medicines with others, and use this medication only for the indication prescribed. ?? Every effort has been made to ensure that the information provided by [employer]') is accurate, up-to-date, and complete, but no guarantee is made to that effect. Drug information contained herein may be time sensitive. [employer] information has been compiled for use by healthcare practitioners and consumers in the [place] and therefore [employer] does not warrant that uses outside of the [place] are appropriate, unless specifically indicated otherwise. [employer]'s drug information does not endorse drugs, diagnose patients or recommend therapy. [employer] drug information isan informational resource designed to assist licensed healthcare practitioners in caring for their p atients and/or to serve consumers viewing this service as a supplement to, and not a substitute for, the expertise, skill, knowledge and judgment of healthcare practitioners. The absence of a warningfor a given drug or drug combination in no way should be construed to indicate that the drug or drug combination is safe, effective or appropriate for any given patient. [employer] does not assume any responsibility for any aspect of healthcare administered with the aid of information [employer] provides. The information contained herein is not intended to cover all possible uses, directions, precautions, warnings, drug interactions, allergic reactions, or adverse effects. If you have questions about the drugs you are taking, check with your doctor, nurse or pharmacist.? Copyright Deisy Millan, Jonnie. Version: 4.. Revision Date: 05/16/2023. ? Patient/Store Warehouse Associate Signature Patient Name:ACE TODD I have received this information and my questions have been answered. Patient/Store Warehouse Associate Name: Patient/Store Warehouse Associate Signature: Relationship to Patient: Witness Name/Signature: Date: Electronically Signed on: 03/05/2024 10:34 EDTSigned by:JL * Julio Hermosillo MD: PERFORM Event Display: Discharge Instructions Authored Date: [id number] ACE TODD :1980 Age:43 years Sex:Male Visit Date:03/02/2024 Hospital Discharge Instructions We would like to thank you for allowing us to assist you with your healthcare needs. The following includes patient education materials and information regarding your injury/illness. Your Next Steps Instructions From Your Care Team An urgent referral to [facility] colorectal surgery will be made??for ongoing evaluation and??management of colon??tumor You should continue a??low residue diet??as tolerated.?Protein shakes or??nutritional supplements like boost or Ensure are helpful. Take a stool softener like MiraLAX daily Call or be seen emergently if you develop??lightheadedness, dizziness,??recurrent??bloody stools, or vomiting Discharge Orders Discharge Disposition, 03/05/24 10:20:00 EDT, Home Independently Scheduled Future Appointments Sunday 3:00 PM EDT ?? Where: [facility] Endoscopy Status: Confirmed Sunday 9:30 AM EDT ?? With: Monique Yanes APRN Where: [facility] Gastroenterology Status: Confirmed Follow Up Appointments Follow Up with??Julio Hermosillo MD When:??Within 1 month, only if needed Where: [facility] [address] [place] [address]- The Following Services Have Been Arranged for You Special Services and Community Resources - None Medications What How Much When Why Instructions Next Dose New polyethylene glycol 3350 (MiraLax) 17 Gram Oral (given by mouth) Every day as needed for constipation Unchanged acetaminophen (acetaminophen 500 mg oral tablet) 1 tab Oral (given by mouth) 2 times a day as needed for as needed for pain Unchanged pantoprazole (pantoprazole 40 mg oral delayed release tablet) 1 tab Oral (given by mouth) Every day GI (gastrointestinal bleed) Duration: 30 Days 30 minutes before evening meal ?? Your Summary Your Care Team Admitting Physician - Julio Hermosillo MD Attending Physician - Julio Hermosillo MD Your Diagnosis Neoplasm of splenic flexure of colon Partial obstruction of colon Iron deficiency anemia secondary to blood loss (chronic) Hematochezia Anemia due to blood loss Problems Ongoing - Any problem that you are currently receiving treatment for. Family history of colon cancer in father GERD (gastroesophageal reflux disease) Hematochezia Melena Tobacco user Procedures Performed ???Colonoscopy Biopsy (03/04/2024) Tests Performed/Pending .Morphology (LTTL) ABO/Rh Echo Antibody Screen Echo Automated Diff BMP CBC w/ Diff CEA CMP Crossmatch Hemoglobin and Hematocrit Lactic Acid Lipase Level Magnesium Level Pathology Request?-- Results Pending -- Red Blood Cells Urinalysis with Micro if Indicated and Culture if Indicated CT Abdomen and Pelvis w/ Contrast CT Chest w/ Contrast Discharge Vitals Temperature??(Temporal Artery) 98.4 ??F (36.9 ??C) Heart Rate??(Peripheral) 78 Respiratory Rate?? 18 Blood Pressure?? 103/71?? SpO2?? 97% Allergies No Known Allergies Education Materials Colonoscopy, Adult, Care After The following information offers guidance on how to care for yourself after your procedure. Your health care provider may also give you more specific instructions. If you have problems or questions, contact your health care provider. What can I expect after the procedure? After the procedure, it is common to have: ? A small amount of blood in your stool for 24 hours after the procedure. ? Some gas. ? Mild cramping or bloating of your abdomen. Follow these instructions at home: Eating and drinking ? Drink enough fluid to keep your urine pale yellow. ? Follow instructions from your health care provider about eating or drinking restrictions. ? Resume your normal diet as told by your health care provider. Avoid heavy or fried foods that are hard to digest. Activity ? Rest as told by your health care provider. ? Avoid sitting for a long time without moving. Get up to take short walks every 1???2 hours. This isimportant to improve blood flow and breathing. Ask for help if you feel weak or unsteady. ? Return to your normal activities as told by your health care provider. Ask your health care provider what activities are safe for you. Managing cramping and bloating ? Try walking around when you have cramps or feel bloated. ? If directed, apply heat to your abdomen as told by your health care provider. Use the heat source that your health care provider recommends, such as a moist heat pack or a heating pad. ? Place a towel between your skin and the heat source. ? Leave the heat on for 20???30 minutes. ? Remove the heat if your skin turns bright red. This is especially important if you are unable to feel pain, heat, or cold. You have a greater risk of getting burned. General instructions ? If you were given a sedative during the procedure, it can affect you for several hours. Do not drive or operate machinery until your health care provider says that it is safe. ? For the first 24 hours after the procedure: ? Do not sign important documents. ? Do not drink alcohol. ? Do your regular daily activities at a slower pace than normal. ? Eat soft foods that are easy to digest. ? Take kjjh-beg-vcxuoev and prescription medicines only as told by your health care provider. ? Keep all follow-up visits. This is important. Contact a health care provider if: ? You have blood in your stool 2???3 days after the procedure. Get help right away if: ? You have more than a small spotting of blood in your stool. ? You have large blood clots in your stool. ? You have swelling of your abdomen. ? You have nausea or vomiting. ? You have a fever. ? You have increasing pain in your abdomen that is not relieved with medicine. These symptoms may be an emergency. Get help right away. Call 911. ? Do not wait to see if the symptoms will go away. ? Do not drive yourself to the hospital. Summary ? After the procedure, it is common to have a small amount of blood in your stool. You may also have mild cramping and bloating of your abdomen. ? If you were given a sedative during the procedure, it can affect you for several hours. Do not drive or operate machinery until your health care provider says that it is safe. ? Get help right away if you have a lot of blood in your stool, nausea or vomiting, a fever, or increased pain in your abdomen. This information is not intended to replace advice given to you by your health care provider. Make sure you discuss any questions you have with your health care provider. Document Revised: 05/24/2022 Document Reviewed: 05/24/2022 [employer] Patient Education ?? 2022 [employer] Gastrointestinal Bleeding Gastrointestinal (GI) bleeding is bleeding somewhere along the digestive tract, between the mouth and the anus. The digestive tract includes the mouth, esophagus, stomach, small intestine, large intestine, and anus. The large intestine is often called the colon. GI bleeding can be caused by various problems. The severity of these problems can be mild, serious,or life-threatening. If you have GI bleeding, you may find blood in your stools (feces), you may have black stools, or you may vomit blood. You may need to stay in the hospital if there is a lot of bleeding. What are the causes? This condition may be caused by: ? Inflammation, irritation, or swelling of the esophagus (esophagitis). The esophagus is part of the body that moves food from your mouth to your stomach. ? Swollen veins in the rectum (hemorrhoids). ? Tears in the anus (anal fissures). The tears are often caused by passing hard stool. ? Pouches that form on the colon and may bleed (diverticulosis). ? Inflammation in areas with diverticulosis. This is called diverticulitis.This can cause pain, fever, and bloody stools. ? Growths (polyps) or cancer. Colon cancer often starts out as precancerous polyps. ? Gastritis and ulcers. These may cause bleeding in the upper GI tract, near the stomach. What increases the risk? You are more likely to develop this condition if: ? You have an infection in your stomach from a type of bacteria called Helicobacter pylori. ? You take certain medicines, such as: ? NSAIDs. ? Aspirin. ? Selective serotonin reuptake inhibitors (SSRIs). ? Steroids. ? Antiplatelet or anticoagulant medicines. ? You smoke. ? You drink alcohol. What are the signs or symptoms? Common symptoms of this condition include: ? Bright red blood in your vomit, or vomit that looks like coffee grounds. ? Bloody, black, or tarry stools. ? Bleeding from the lower GI tract will usually cause red or maroon blood in the stools. ? Bleeding from the upper GI tract may cause black, tarry stools that are often stronger smelling than usual. ? In certain cases, if the bleeding is fast enough, the stools may be red. ? Pain or cramping in the abdomen. How is this diagnosed? This condition may be diagnosed based on: ? Your medical history and a physical exam. ? Various tests, such as: ? Blood tests. ? Stool tests. ? X-rays and other imaging tests. ? Esophagogastroduodenoscopy (EGD). In this test, a flexible, lighted tube is used to look at your esophagus, stomach, and small intestine. ? Colonoscopy. In this test, a flexible, lighted tube is used to look at your colon. How is this treated? Treatment for this condition depends on the cause of the bleeding. For example: ? For bleeding from the esophagus, stomach, small intestine, or colon, the health care provider may do a procedure to stop bleeding during your EGD or colonoscopy. ? Inflammation or infection of the colon can be treated with medicines. ? Certain rectal problems can be treated with creams, suppositories, or warm baths. ? Medicines may be given to reduce acid in your stomach. ? Surgery is sometimes done. ? Blood transfusions are sometimes needed if a lot of blood has been lost. If there is a lot of bleeding, you will need to stay in the hospital for observation. If bleeding is mild, you may be allowed to go home. Follow these instructions at home: ? Take hxqx-wyf-crwqrha and prescription medicines only as told by your health care provider. ? Eat foods that are high in fiber, such as beans, whole grains, and fresh fruits and vegetables. This will help to keep your stools soft. Eating 1???3 prunes each day works well for many people. ? Drink enough fluid to keep your urine pale yellow. ? Keep all follow-up visits. This is important. Contact a health care provider if: ? Your symptoms do not improve with treatment. Get help right away if: ? Your bleeding does not stop. ? You feel light-headed or you faint. ? You feel weak. ? You have severe cramps in your back or abdomen. ? You pass large blood clots in your stool. ? Your symptoms are getting worse. ? You have chest pain or fast heartbeats. These symptoms may be an emergency. Get help right away. Call 911. ? Do not wait to see if the symptoms will go away. ? Do not drive yourself to the hospital. Summary ? Gastrointestinal (GI) bleeding is bleeding somewhere along the digestive tract, between the mouth and anus. GI bleeding can be caused by various problems. ? Treatment for this condition depends on the cause of the bleeding. ? Take dgmm-jxv-bmiahxe and prescription medicines only as told by your health care provider. ? Get help right away if your bleeding increases, your symptoms are getting worse, or you have new symptoms. ? Keep all follow-up visits. This is important. This information is not intended to replace advice given to you by your health care provider. Make sure you discuss any questions you have with your health care provider. Document Revised: 05/05/2022 Document Reviewed: 05/05/2022 [employer] Patient Education ?? 2022 [employer]. Patient/Store Warehouse Associate Signature Patient Name:ACE TODD Kiah I have received this information and my questions have been answered. Patient/Store Warehouse Associate Name: Patient/Store Warehouse Associate Signature: Relationship to Patient: Witness Name/Signature: Date: Electronically Signed on: 03/05/2024 10:27 EDTSigned by:U Physician Emergency department Note * Quinten Preston, DO: PERFORM, MODIFY, MODIFY, MODIFY, MODIFY Event Display: ED Note Physician Authored Date: [id number] ACE TODD :1980 Age:43 years Sex:Male Visit Date:03/02/2024 This is a 43-year-old male no significant past medical history presents to the emergency departmentwith concerns of hematochezia.?? He was evaluated on 01/19/2024 here in the emergency department-please see ED summary from that visit.?? At that time he was having generalized abdominal cramping pain,reflux symptoms complicated by nausea/vomiting.?? He underwent GI [employer] stool testing which was all negative.?? His laboratory workup revealed an H&H of 11.6 and 35.4 respectively with MCV 82.4and platelet count 386.?? Normal coagulation panel.?? Chemistries were unremarkable.?? He was discharged home with a diagnosis of undiagnosed GI bleed with close GI follow-up and a referral for primary care. ?? OF NOTE: DAD WAS DIAGNOSED WITH COLORECTAL CANCER AT AGE 38 AND PASSED ON 16 YEARS AGO. PATIENT DIDNOT HAVE SCREENING COLONOSCOPY AT ANY TIME YET. ?? On 02/01/2024 he was evaluated at the GI clinic for follow-up.?? Specifically guaiac positive stool and has been taking pantoprazole since his emergency department visit on 01/19/2024.?? He was experiencing a lot of pyrosis worse at night.?? No dyspepsia, dysphagia or globus sensation.?? He avoided NSAIDs.?? Prior to that he was using 4-6 Advil tablets that week prior to the initial GI bleed in 01/19/2024.?? No EGD or colonoscopy as of yet.?? Plan for 1 day of melena hematochezia none since startingpantoprazole 40 mg daily is to obtain EGD to assess for mucosal injury, inflammation, H. pylori infection and/or celiac disease.?? Additionally colonoscopy was recommended to assess for colitis or maribeth plasia.?? There was mention of the possibility of anal fissure or internal hemorrhoids also present.?? He was instructed to avoid eating 3 hours before bedtime and eat small frequent meals and to avoid NSAIDs moving forward.?? He was also advised to stop drinking alcohol. ?? He admitted feeling well up until this morning when we he began to have some worsening abdominal cramping.?? Throughout the day this progressively worsened and at 6 PM he noted a mixed melena/hematochezia (bloody/dark stool) bowel movement.?? This is very similar to his previous episode.?? He then had 1 episode of vomiting where he felt there was some coffee-ground emesis.?? He continues to have abdominal discomfort which was abnormal to him.?? He does have a history of alcohol abuse which he stopped drinking 42 days ago and has no issues since. ?? Screening laboratory workup reveals a white blood cell count mildly elevated at 11.5, H&H 9.2 and 28.4 respectively with platelet count 334.?? Chemistries reveal sodium 139, potassium 3.5, chloride 105, CO2 25, BUN 18, creatinine 1, glucose 136 mg/dL.?? Mild elevation in alkaline phosphatase otherwise normal liver function testing with bilirubin minimally elevated at 1.1.?? There was no lactic acidosis.?? Lipase was normal.?? Magnesium was normal. ?? 10:40 PM: CT abdomen/pelvis was read which revealed focal circumferential mass versus inflammation involving the splenic flexure: Contributing to partial obstruction in the more proximal colon.?? No evidence of SBO. ??Dr. Hermosillo was consulted - awaiting callback. ?? 11:12 PM:??Dr. Hermosillo was reconsulted - awaiting callback. ?? 11:25 PM: Spoke with Dr. Hermosillo who agreed to independently evaluate??the patient at bedside for definitive management.?? Please see surgical admission history and physical examination/consult note for more information. Electronically Signed on 03/03/24 07:10 AM Quinten Preston, DO * CELINE Wallace: PERFORM, MODIFY Event Display: ED Note Physician Authored Date: [id number] ACE TODD :1980 Age:43 years Sex:Male Visit Date:03/02/2024 Basic Information Time Seen: CELINE Wallace / 03/02/2024 21:12 Chief Complaint Vomiting, blood in stool History Of Present Illness: Patient is a 43-year-old male who was seen here??on 01/18 for what he believed was a GI bleed.?? At that time his hemoglobin was stable he was given IV fluids and??Protonix. ??His numbers were stable and they felt it was appropriate for him to follow-up in the outpatient setting.?? At this time??patient has had 1??visit with GI??and has a??upper and lower endoscopy scheduled for March 31. He has been feeling well??up until this point since his ED visit and??unfortunately today??in the morning he began to have some abdominal discomfort. ??He then had??at approximately 6:00 this afternoon a bloody/dark stool bowel movement. ??He states this was similar to his previous. ??At this time he has had 1??subsequent??episode of dark stool. ??He has had 1 episode of vomiting where he states there was some questionable coffee-ground emesis??however was mostly liquid. Patient is having some abdominal discomfort??which she states is abnormal for him but was similar to his previous presentation here to the ED.?? Patient has no GI history??does have a remote smoking history??but at this time??is currently not smoking.?? He does have a history of alcohol abuse??which she stopped drinking??completely 42 days ago??and has had no issues??since. Review of Systems: See HPI Physical Exam Vitals & Measurements T:??36.2?C ??(Temporal Artery)?? HR:??107??(Peripheral)?? RR:??16?? BP:??104/79?? SpO2:??100%?? HT:??177??cm?? WT:??61??kg?? BMI:??19.47?? Pain Score:??6?? O2 Therapy:??Room air?? Patient is alert oriented nontoxic but mildly ill-appearing??age-appropriate male Neck is supple??nontender full range of motion EOM intact, PERRL, sclera anicteric Clear to auscultation Regular rate and rhythm no murmurs Skin is pale, dry, intact Abdomen is soft, bowel sounds are present but hypoactive, there is significant tenderness in the right lower quadrant??with negative Rovsing, negative Pearson sign, no guarding, negative psoas Medical Decision Making: While here in the emergency department patient is given??IV fluids, Protonix and Zofran. ??Laboratory evaluation is employed.?? There was no imaging at last visit and therefore a CT scan with contrast is employed??to rule out other pathologies Patient has right lower quadrant tenderness??and we will rule out appendicitis and other??etiologies Laboratory evaluation is pending at the time of this dictation??and as of??2140??we await laboratory??and CT evaluation. At time of this dictation care was transferred to Dr. Mohan for??follow-up on laboratory evaluation as well as CT examination.?? Patient is aware of this and awaits Procedure No Qualifying Data Assessment/Plan Ordered: Sodium Chloride 0.9% 1,000 mL, Total Volume (mL): 1,000, 1,000 mL, Soln-IV, Medication Bolus, 999 mL/hr, Order Duration: 1 times, Start Date: 03/02/24 21:35:00 EDT, Stop Date: 03/02/24 22:34:00 EDT, 61 kg, Populate Charting Weight From Order, 1.73, m2 CBC w/ Diff, Blood, Stat, 03/02/24 21:21:00 EDT, Once, Nurse collect Comprehensive Metabolic Panel, Blood, Stat, 03/02/24 21:21:00 EDT, Once, Nurse collect CT Abdomen and Pelvis w/ Contrast, 03/02/24 21:22:00 EDT, Stat, Reason: abd pain RLQ, Transport Mode: Stretcher Lactic Acid, Blood, Stat, 03/02/24 21:21:00 EDT, Once, Nurse collect Lipase Level, Blood, Stat, 03/02/24 21:21:00 EDT, Once, Nurse collect Magnesium Level, Blood, Stat, 03/02/24 21:21:00 EDT, Once, Nurse collect Urinalysis with Micro if Indicated and Culture if Indicated, Urine, Stat Collect, 03/02/24 21:21:00EDT, Once, Nurse collect, Print Label Medication Reconciliation Unchanged pantoprazole (pantoprazole 40 mg oral delayed release tablet)1 tab Oral (given by mouth) every day for 30 Days. 30 minutes before evening meal. Refills: 11. Problem List/Past Medical History Ongoing Family history of colon cancer in father GERD (gastroesophageal reflux disease) Hematochezia Melena Tobacco user Historical No qualifying data Medication Administration Given Sodium Chloride 0.9%, 1000 mL, Medication Bolus ondansetron, 4 mg, IV Push Protonix, 40 mg, IV Push Allergies No Known Allergies Social History Alcohol Current, Beer, Daily- Comments: 12pk on the weekends; 2-3 beers/day Electronic Cigarette/Vaping Electronic Cigarette Use: Never. Substance Use Never Tobacco Never tobacco user Tobacco Use:.- Comments: Nicotine pouches Family History Colon cancer, stage 2: Father. Electronically Signed on 03/02/24 09:58 PM CELINE Wallace Progress note * Julio Hermosillo MD: PERFORM Event Display: Progress Note - Physician Authored Date: [id number] ACE TODD :1980 Age:43 years Sex:Male Visit Date:03/02/2024 Subjective No acute events Denies abdominal pain Tolerated??full liquids??without nausea??or vomiting Afebrile, hemodynamically normal Moving his bowels without hematochezia Objective Vitals & Measurements T:??36.9?C ??(Temporal Artery)?? TMIN:??36.3?C ??(Temporal Artery)?? TMAX:??37.2?C ??(Temporal Artery)?? HR:??78??(Peripheral)?? RR:??18?? BP:??103/71?? SpO2:??97%?? Pain Score:??2?? O2 Therapy:??Room air?? Physical Exam General: No acute distress complexing, conversant CV: RRR Pulmonary: Regular breathing rate and effort Abdomen: Soft, nondistended, nontender Lab Results Last 24 Hours?? Chemistry ? Event Name?? Event Result?? Date/Time?? Sodium Level 142 mmol/L 03/05/24 06:00:00 Potassium Level 3.8 mmol/L 03/05/24 06:00:00 Chloride Level 107 mmol/L 03/05/24 06:00:00 CO2 31 mmol/L 03/05/24 06:00:00 BUN 5 mg/dL??Low 03/05/24 06:00:00 Glucose Level 110 mg/dL??High 03/05/24 06:00:00 Creatinine Level 0.7 mg/dL 03/05/24 06:00:00 BUN/Creat Ratio 7.1??Low 03/05/24 06:00:00 eGFR CKD-EPI 117 mL/min/1.73 m2 03/05/24 06:00:00 Calcium Level 8 mg/dL??Low 03/05/24 06:00:00 Anion Gap 4 03/05/24 06:00:00 Osmolality 281 mOsm/kg 03/05/24 06:00:00 ? Hematology ? Event Name?? Event Result?? Date/Time?? WBC 6.2 K/mcL 03/05/24 06:00:00 RBC 3.21 Million/mcL??Low 03/05/24 06:00:00 Hgb 8.6 g/dL??Low 03/05/24 06:00:00 Hct 25.1 %??Low 03/05/24 06:00:00 MCV 78.2 fL??Low 03/05/24 06:00:00 MCH 26.8 pg??Low 03/05/24 06:00:00 MCHC 34.2 g/dL 03/05/24 06:00:00 RDW-CV 15.4 %??High 03/05/24 06:00:00 Platelets 226 K/mcL 03/05/24 06:00:00 MPV 6.7 fL??Low 03/05/24 06:00:00 Neutro Auto 69.2 % 03/05/24 06:00:00 Lymph Auto 18.7 %??Low 03/05/24 06:00:00 [place] Auto 10.1 %??High 03/05/24 06:00:00 Eos, Auto 1.7 % 03/05/24 06:00:00 Basophil Auto 0.3 % 03/05/24 06:00:00 Neutro Absolute 4.3 K/mcL 03/05/24 06:00:00 Lymph Absolute 1.2 K/mcL 03/05/24 06:00:00 [place] Absolute 0.6 K/mcL 03/05/24 06:00:00 Eos Absolute 0.1 K/mcL 03/05/24 06:00:00 Baso Absolute 0 K/mcL 03/05/24 06:00:00 RBC Morph Abnormal Abnormal 03/05/24 06:00:00 Hypochromia 1+ Abnormal 03/05/24 06:00:00 Microcyte 1+ Abnormal 03/05/24 06:00:00 Plt Estimation Normal 03/05/24 06:00:00 Slide Review Morph Only 03/05/24 06:00:00 ? 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 ?? 2.??Partial obstruction of colon??K56.600 Ordered: Pathology Request, AP Specimen, RT Collect, Collected, 03/04/24 8:43:00 EDT, Once by TRLab Collect, Print Label, Neoplasm of unspecified behavior of digestive system Iron deficiency anemia secondary to blood loss (chronic) Partial intestinal obstruction... ?? 3.??Iron deficiency anemia secondary to blood loss (chronic)??D50.0,??Anemia due to blood loss??D50.0 Ordered: Pathology Request, AP Specimen, RT Collect, Collected, 03/04/24 8:43:00 EDT, Once by TR,Lab Collect, Print Label, Neoplasm of unspecified behavior of digestive system Iron deficiency anemia secondary to blood loss (chronic) Partial intestinal obstruction... ?? 4.??Hematochezia??K92.1 ??Ace Todd is a 43-year-old male??admitted with hematochezia, vomiting, and??CT evidence concerning for??neoplasm of the colon at splenic flexure causing partial obstruction.?He had symptomatic anemia for which she was transfused 2 units PRBCs. ??Has had no ongoing hematochezia.?Despite concern for partial colonic obstruction, he was able to tolerate a??colon prep??without issue.?? Intermittent colonoscopy yesterday which demonstrated a mass??in the region of the splenic flexure??which was??partially obstructing and??could not be traversed with the colonoscope. ??Biopsies were taken and the site was tattooed.?? We discussed the strategy for management. ??Given his young age and??significant family history, I recommend evaluation by a colorectal surgeon at a??cancer center.?? This will allow for appropriate consideration of genetic testing and??discussion of the extent of potential resection if he is at high risk for??synchronous or metachronous cancers.?Ace demonstrated good understanding with this plan. ??He is tolerating a diet well. ??I recommend that he continue??a low residue diet and??MiraLAX daily.?? In the absence of ongoing bleeding or??progression of obstructive symptoms, he we have the time to accommodate??further evaluation and discussion of surgical options.?? Will plan to discharge home??today. ??I will send an urgent referral to [facility] colorectal surgery as discussed.?? I will forward the pathology results from??colon biopsies??when available. Ordered: Pathology Request, ELIE Specimen, RT Collect, Collected, 03/04/24 8:43:00 EDT, Once by TR,Lab Collect, Print Label, Neoplasm of unspecified behavior of digestive system Iron deficiency anemia secondary to blood loss (chronic) Partial intestinal obstruction... ?? Orders: MiraLax, 17 g = 1 packets, Oral, Powder-Recon, Daily, PRN constipation, First Dose: 03/05/24 8:39:00 EDT, Routine Diet Order, 03/05/24 8:39:00 EDT, Low Residue Electronically Signed on 03/05/2024 09:19 EDT Julio Hermosillo MD * Julio Hermosillo MD: PERFORM Event Display: Progress Note - Physician Authored Date: [id number] ACE TODD :1980 Age:43 years Sex:Male Visit Date:03/02/2024 Subjective No acute events Posttransfusion hemoglobin??stable around 9??overnight Afebrile, hemodynamically??normal Tolerated??clears and??GoLytely bowel prep throughout the course of the day Some hematochezia early on in the prep??which has since resolved N.p.o. since midnight for planned colonoscopy Objective Vitals & Measurements T:??37.0?C ??(Temporal Artery)?? TMIN:??36.3?C ??(Temporal Artery)?? TMAX:??37.5?C ??(Temporal Artery)?? HR:??92??(Monitored)?? RR:??18?? BP:??111/76?? SpO2:??100%?? Pain Score:??0?? O2 Therapy:??Room air?? Physical Exam General: No acute distress, pleasant, conversant CV: RRR Pulmonary: Regular breathing rate and effort Abdomen: Soft, nontender, nondistended Lab Results Last 24 Hours?? Chemistry ? Event Name?? Event Result?? Date/Time?? Sodium Level 139 mmol/L 03/04/24 06:14:00 Potassium Level 3.5 mmol/L 03/04/24 06:14:00 Chloride Level 106 mmol/L 03/04/24 06:14:00 CO2 26 mmol/L 03/04/24 06:14:00 BUN 8 mg/dL 03/04/24 06:14:00 Glucose Level 84 mg/dL 03/04/24 06:14:00 Creatinine Level 0.7 mg/dL 03/04/24 06:14:00 BUN/Creat Ratio 11.4 03/04/24 06:14:00 eGFR CKD-EPI 117 mL/min/1.73 m2 03/04/24 06:14:00 Calcium Level 8 mg/dL??Low 03/04/24 06:14:00 Anion Gap 7 03/04/24 06:14:00 Osmolality 275 mOsm/kg 03/04/24 06:14:00 ? Hematology ? Event Name?? Event Result?? Date/Time?? WBC 5.8 K/mcL 03/04/24 06:14:00 RBC 3.43 Million/mcL??Low 03/04/24 06:14:00 Hgb 9.1 g/dL??Low 03/04/24 06:14:00 Hct 27.1 %??Low 03/04/24 06:14:00 MCV 79.1 fL??Low 03/04/24 06:14:00 MCH 26.4 pg??Low 03/04/24 06:14:00 MCHC 33.4 g/dL 03/04/24 06:14:00 RDW-CV 15 %??High 03/04/24 06:14:00 Platelets 230 K/mcL 03/04/24 06:14:00 MPV 6.5 fL??Low 03/04/24 06:14:00 Neutro Auto 69.9 % 03/04/24 06:14:00 Lymph Auto 21.2 % 03/04/24 06:14:00 [place] Auto 6.9 % 03/04/24 06:14:00 Eos, Auto 1.4 % 03/04/24 06:14:00 Basophil Auto 0.6 % 03/04/24 06:14:00 Neutro Absolute 4 K/mcL 03/04/24 06:14:00 Lymph Absolute 1.2 K/mcL 03/04/24 06:14:00 [place] Absolute 0.4 K/mcL 03/04/24 06:14:00 Eos Absolute 0.1 K/mcL 03/04/24 06:14:00 Baso Absolute 0 K/mcL 03/04/24 06:14:00 RBC Morph Abnormal Abnormal 03/04/24 06:14:00 Hypochromia 1+ Abnormal 03/04/24 06:14:00 Microcyte 1+ Abnormal 03/04/24 06:14:00 Plt Estimation Normal 03/04/24 06:14:00 Plt Large Few Abnormal 03/04/24 06:14:00 Slide Review Morph Only 03/04/24 06:14:00 ? All Other Results ? Event Name?? Event Result?? Date/Time?? TRANSFUSED TRANSFUSED 03/03/24 12:39:00 ? 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 ??He has??tolerated the prep well.?? He has responded appropriately to??blood transfusion??and is stable overnight. ??Plan for??colonoscopy today.?? We will discuss??timing of any surgical intervention for hiscolon pathology based on??findings today.?? Keep n.p.o. and anticipation of colonoscopy. Orders: LR 1,000 mL, Total Volume (mL): 1,000, 1,000 mL, Soln-IV, IV, 100 mL/hr, Start Date: 03/02/24 23:27:00 EDT, 61 kg, Populate Charting Weight From Order, 1.73, m2 pantoprazole, 40 mg = 1 EA, IV Push, Vial, Daily, First Dose: 03/03/24 16:00:00 EDT, Routine GoLYTELY, 4,000 mL, Oral, Powder-Recon, every 1 hr for 36 hr, PRN other (see comment), First Dose: 03/03/24 8:27:00 EDT, Stop Date: 03/04/24 20:26:00 EDT, Physician Stop, Routine sodium chloride 0.9% flush, 10 mL, IV Flush, Injection, every 8 hr (linda), First Dose: 03/04/24 8:00:00 EDT, Routine sodium chloride 0.9% flush, 10 mL, IV Flush, Injection, As Directed, First Dose: 03/04/24 7:31:00 EDT, Physician Stop, Routine Sodium Chloride 0.9% 1,000 mL, Total Volume (mL): 1,000, 1,000 mL, Soln-IV, IV, 50 mL/hr, Start Date: 03/04/24 7:31:00 EDT, 61 kg, Populate Charting Weight From Order, 1.73, m2 Crossmatch, Blood, Routine, Collected, 03/03/24 6:07:00 EDT, by ALEENA, Lyudmila, Lab Collect, 4 mL EDTA 4 mL/*A*/ Diet Order, 03/03/24 0:28:00 EDT, NPO, okay for sips of clears or ice with bowel prep, NPO after MN Obtain consent, 03/04/24 7:31:00 EDT, Constant Order, 03/04/24 7:31:00 EDT Sequential Compression Devices (SCD's), 03/04/24 7:31:00 EDT, Constant Order, Knee high sequentials, 03/04/24 7:31:00 EDT Vital Signs, 03/04/24 7:31:00 EDT, Stop date 03/04/24 7:31:00 EDT, Routine Electronically Signed on 03/04/2024 08:09 EDT Julio Hermosillo MD * Julio Hermosillo MD: PERFORM Event Display: Progress Note - Physician Authored Date: [id number] ACE TODD :1980 Age:43 years Sex:Male Visit Date:03/02/2024 Subjective No acute events overnight Reports minimal abdominal pain this morning Denies persistent nausea or recurrent emesis No further episodes of hematochezia, passing flatus, no BM Afebrile, tachycardia??resolved with ongoing IV fluid resuscitation overnight Hemoglobin 6.9 on a.m. labs??following fluid resuscitation Objective Vitals & Measurements T:??37.8?C ??(Temporal Artery)?? TMIN:??36.2?C ??(Temporal Artery)?? TMAX:??37.8?C ??(Temporal Artery)?? HR:??53??(Peripheral)?? RR:??18?? BP:??95/51?? SpO2:??98%?? HT:??177??cm?? WT:??61??kg?? BMI:??19.47?? Pain Score:??7?? O2 Therapy:??Room air?? Physical Exam General: No acute distress, pleasant, conversant CV: RRR Pulmonary: Regular breathing rate and effort Abdomen: Soft,??minimally distended,??fullness in the right??abdomen??without??significant tenderness, rebound pain, or involuntary guarding Extremities:??Warm,??well-perfused Skin: Pale Lab Results Labs??(Last four charted values) WBC ?6.1?(MARCH 03)?H??11.5?(MARCH 02) Hgb ?C??6.9?(MARCH 03)?L??9.2?(MARCH 02) Hct ?C??21.0?(MARCH 03)?L??28.4?(MARCH 02) Plt ?260?(MARCH 03)?334?(MARCH 02) Na ?140?(MARCH 03)?139?(MARCH 02) K ?3.7?(MARCH 03)?3.5?(MARCH 02) CO2 ?25?(MARCH 03)?25?(MARCH 02) Cr ?0.80?(MARCH 03)?1.00?(MARCH 02) BUN ?18?(MARCH 03)?18?(MARCH 02) Glucose Random ?H??111?(MARCH 03)?H??136?(MARCH 02) Assessment/Plan 1.??Partial obstruction of colon??K56.600 Ordered: PSO Admit to Inpatient, Evy, Inpatient, Julio Hermosillo MD, 03/03/24 0:21:00 EDT, 03/03/24 0:21:00 EDT, 03/03/24 0:21:00 EDT, Less than 96 hours ?? 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 3.??Hematochezia??K92.1 ?? 4.??Anemia due to blood loss??D50.0 ??Ace Todd is a 43-year-old male??mated overnight with??hematochezia and vomiting. ??He has CTevidence concerning for partial colonic??obstruction with??luminal narrowing near the splenic flexure.?? He has had no ongoing episodes of hematochezia, but his??hemoglobin this morning is 6.9 following IV fluid resuscitation.?? Plan to transfuse 2 units PRBCs.?? He is??hemodynamically stable and does not have evidence of ongoing??bleeding warranting surgical intervention at this moment.?Will trend his hemoglobin??this afternoon with repeat H&H. ??On further review of his history and??CTfindings,??his colonic obstruction is??only partial. ??The lumen of the??colon??at the area of concern appears to be patent??on CT.?? I suspect that the decompression of the colon distally is likely due to the cathartic nature of his lower GI bleed.?In this setting,??a trial of colon prep??is warranted. ??If successful, would proceed with??colonoscopy to better evaluate the neoplasm of concern??at the splenic flexure, obtain biopsies, and??evaluate for possible??metachronous lesions.?? Will start a??slow GoLytely prep over the course of today??and consider possible colonoscopy tomorrow.?? Timing of any further surgical invention depending on??ability to??tolerate prep and any endoscopic findings.?? Ace demonstrated good understanding agreement this plan.?? Okay for sips of clears will perform prep. ??N.p.o. after completion of prep.? Orders: acetaminophen, 1,000 mg = 100 mL, IV Piggyback, Injection, every 6 hr, PRN pain, mild, Administer over: 0.3 hr, First Dose: 03/03/24 0:28:00 EDT, Routine, 400 mL/hr HYDROmorphone, 0.25 mg = 0.25 mL, IV Push, Injection, every 2 hr, PRN pain, severe, First Dose: 03/03/24 0:28:00 EDT, Routine Lactated Ringers Injection 1,000 mL, Total Volume (mL): 1,000, 1,000 mL, Soln- IV, IV, 150 mL/hr, Start Date: 03/03/24 0:28:00 EDT, 61 kg, Populate Charting Weight From Order, 1.73, m2 LR 1,000 mL, Total Volume (mL): 1,000, 1,000 mL, Soln-IV, IV, 100 mL/hr, Start Date: 03/02/24 23:27:00 EDT, 61 kg, Populate Charting Weight From Order, 1.73, m2 naloxone, 0.1 mg = 0.25 mL, IV Push, Injection, every 5 min, PRN other (see comment), First Dose: 03/03/24 0:28:00 EDT, Routine ondansetron, 4 mg = 2 mL, IV Push, Vial, every 6 hr, PRN nausea/vomiting, First Dose: 03/03/24 0:28:00 EDT, Routine ondansetron, 4 mg = 1 tab, Oral, Tab-Dis, every 6 hr, PRN nausea/vomiting, First Dose: 03/03/24 0:28:00 EDT, Routine GoLYTELY, 4,000 mL, Oral, Powder-Recon, every 1 hr for 36 hr, PRN other (see comment), First Dose: 03/03/24 8:27:00 EDT, Stop Date: 03/04/24 20:26:00 EDT, Physician Stop, Routine prochlorperazine, 5 mg = 1 mL, IV Push, Vial, every 4 hr, PRN nausea/vomiting, First Dose: :28:00 EDT, Routine prochlorperazine, 25 mg = 1 supp, Rectal, Supp, every 12 hr, PRN nausea/vomiting, First Dose: 03/03/24 0:28:00 EDT, Routine prochlorperazine, 10 mg = 2 tab, Oral, Tab, every 6 hr, PRN nausea/vomiting, First Dose: 03/03/24 0:28:00 EDT, Routine sodium chloride 0.9% flush, 10 mL, IV Flush, Injection, every 8 hr, First Dose: 03/03/24 1:00:00 EDT, Routine Ambulate, 03/03/24 0:28:00 EDT, Constant order Basic Metabolic Panel, Blood, Routine, 03/03/24 0:29:00 EDT, every morning, for 3 days, Lab Collect CBC w/ Diff, Blood, Routine, 03/03/24 0:29:00 EDT, every morning, for 3 days, Lab Collect CEA, Blood, Add On, 03/03/24 0:28:00 EDT, Once, Lab Collect Contraindicated, 03/03/24 0:28:00 EDT, Contraindicated due to Medical Diagnosis / Will re- evaluateas Patient condition changes Crossmatch, Blood, Routine, Collected, 03/03/24 6:07:00 EDT, by ALEENA, Once, Lab Collect, 4 mL EDTA 4 mL/*A*/ Diet Order, 03/03/24 0:28:00 EDT, NPO, okay for sips of clears or ice with bowel prep Hemoglobin and Hematocrit, Blood, Timed Study, 03/03/24 15:00:00 EDT, Once, Lab Collect Incentive Spirometry Nursing, 03/03/24 0:28:00 EDT Intake and Output, 03/03/24 0:28:00 EDT, every 12 hr (linda), q shift, 03/03/24 9:00:00 EDT Patient Condition, 03/03/24 0:28:00 EDT, Condition Good/ Stable Red Blood Cells, Expedite, Print Label, 2 units, Symptomatic anemia Resuscitation Status, 03/03/24 0:28:00 EDT, Full Code Sequential Compression Devices (SCD's), 03/03/24 0:28:00 EDT, Constant Order, 03/03/24 0:28:00 EDT Sequential Compression Devices (SCD's), 03/03/24 0:28:00 EDT, Constant Order, 03/03/24 0:28:00 EDT TRANSFUSE Red Blood Cells, Stat, 2 units, Stop date 03/03/24 8:05:00 EDT, [facility] Up ad Delisa, 03/03/24 0:28:00 EDT, Constant Order, at nurse's discretion, 03/03/24 0:28:00 EDT Vital Signs, 03/03/24 0:28:00 EDT, every 4 hr ([facility]) Vital Signs, 03/03/24 8:05:00 EDT, Constant order, Obtain vitals 15 minutes after initiation, then hourly during infusion, then at discontinuation of unit Vital Signs, 03/03/24 8:05:00 EDT, Once, Stop date 03/03/24 8:05:00 EDT, Obtain baseline before transfusion Electronically Signed on 03/03/24 08:58 AM Julio Hermosillo MD History and physical note * Julio Hermosillo MD: PERFORM Event Display: History and Physical Authored Date: [id number] ACE TODD Kiah :1980 Age:43 years Sex:Male Visit Date:03/02/2024 Chief Complaint Vomiting, blood in stool History of Present Illness Ace Todd is a 43-year-old male who presented to the emergency department today with complaintsof??abdominal pain, vomiting, and??hematochezia.?? Ace??was in his usual state of health prior to the onset of??hematochezia in January for which he was evaluated??in the ED. ??He was seen??in follow-up by GI??and started on pantoprazole. ??A plan was made for EGD and colonoscopy. He had improvement in his??upper GI complaints??with pantoprazole. ??He has had no significant episodes of hematochezia until??earlier today??when he began having??diffuse crampy abdominal pain. ??He had an episode??of nausea and vomiting??this afternoon which she describes as like coffee grounds. ??He had??bowel movement this??afternoon which was??bloody. ??Has been passing flatus. ??He said no constipation to this point.?? He denies fevers but has been??subjectively cold??this evening.?? He states that his weight has been??stable.?? He has no significant history of inflammatory bowel disease. ??He has a significant family history of colon cancer??in his father who was diagnosed at age 38. ??He was treated initially but then??eventually had a recurrence and?? of colon cancer approximately 16 years ago.?? Ace has had no prior colonoscopies.?? He has had no prior surgeries. ??He takes no medications other than pantoprazole on a regular basis. ??He denies other significant medical problems.?? He was drinking regularly prior to his initial presentation??in January, but has??stopped drinking since that time. Review of Systems A 10 point review of systems was completed. ??Notable findings are documented above. Physical Exam Vitals & Measurements T:??36.2?C ??(Temporal Artery)?? HR:??107??(Peripheral)?? RR:??16?? BP:??96/70?? SpO2:??100%?? HT:??177??cm?? WT:??61??kg?? BMI:??19.47?? Pain Score:??6?? O2 Therapy:??Room air?? General: No acute distress, pleasant, conversant CV: RRR Pulmonary: Regular breathing rate and effort Abdomen:??Soft,??mildly distended,??fullness??in the??right abdomen??with minimal tenderness to deep palpation. ??No rebound pain or involuntary guarding.?? Skin: Warm, dry,??pale, no rash or jaundice Neuro: Grossly intact Extremities:??Warm, well-perfused, no edema Assessment/Plan 1.??Partial obstruction of colon??K56.600 Ordered: [facility], Julio Hermosillo MD, 03/03/24 0:21:00 EDT, 03/03/24 0:21:00 EDT, 03/03/24 0:21:00 EDT, Less than 96 hours ?? 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 ??He has CT evidence of??partial colon obstruction. ??He is nontoxic-appearing and is passing flatus. ??His last bowel movement was primarily blood. ??He has had no constipation to the up to this point.?? Despite that, his CT is concerning for progressive obstruction.?? The??site of??obstruction is an area of thickening at the splenic flexure concerning for malignancy.?? I discussed these findings with Ace and his significant other.?? I am concerned that he has a??partial obstructing colon cancer and will need surgery.?? This will likely involve ??diverting ostomy of some sort??with or without resection of the primary tumor??depending on its appearance intraoperatively.?Plan for admission,??bowel rest, IV fluid resuscitation,??serial hemoglobin,??and to complete staging workup??with CT chest prior to likely??surgery??tomorrow.?Ace demonstrated good understanding and agreement. Ordered: PSO Admit to Inpatient, Lindsay, Rust, Julio Hermosillo MD, 03/03/24 0:21:00 EDT, 03/03/24 0:21:00 EDT, 03/03/24 0:21:00 EDT, Less than 96 hours ?? Orders: acetaminophen, 1,000 mg = 100 mL, IV Piggyback, Injection, every 6 hr, PRN pain, mild, First Dose: 03/03/24 0:28:00 EDT, Routine HYDROmorphone, 0.25 mg = 0.25 mL, IV Push, Injection, every 2 hr, PRN pain, severe, First Dose: 03/03/24 0:28:00 EDT, Routine Lactated Ringers Injection 1,000 mL, Total Volume (mL): 1,000, 1,000 mL, Soln- IV, IV, 150 mL/hr, Start Date: 03/03/24 0:28:00 EDT, 61 kg, Populate Charting Weight From Order, 1.73, m2 naloxone, 0.1 mg = 0.25 mL, IV Push, Injection, every 5 min, PRN other (see comment), First Dose: 03/03/24 0:28:00 EDT, Routine ondansetron, 4 mg = 2 mL, IV Push, Vial, every 6 hr, PRN nausea/vomiting, First Dose: 03/03/24 0:28: EDT, Routine ondansetron, 4 mg = 1 tab, Oral, Tab-Dis, every 6 hr, PRN nausea/vomiting, First Dose: 03/03/24 0:28: EDT, Routine prochlorperazine, 5 mg = 1 mL, IV Push, Vial, every 4 hr, PRN nausea/vomiting, First Dose: :: EDT, Routine prochlorperazine, 25 mg = 1 supp, Rectal, Supp, every 12 hr, PRN nausea/vomiting, First Dose: 03/03/24 0:28:00 EDT, Routine prochlorperazine, 10 mg = 2 tab, Oral, Tab, every 6 hr, PRN nausea/vomiting, First Dose: 03/03/24 0:28:00 EDT, Routine sodium chloride 0.9% flush, 10 mL, IV Flush, Injection, every 8 hr, First Dose: 03/03/24 1:00:00 EDT, Routine sodium chloride 0.9% flush, 10 mL, IV Flush, Injection, As Directed, First Dose: 03/03/24 0:28:00 EDT, Physician Stop, Routine ABO/Rh Echo, Blood, Routine, 03/03/24 6:00:00 EDT, Once, Lab Collect ABSC Echo, Blood, Routine, 03/03/24 6:00:00 EDT, Once, Lab Collect Ambulate, 03/03/24 0:28:00 EDT, Constant order Basic Metabolic Panel, Blood, Routine, 03/03/24 0:29:00 EDT, every morning, for 3 days, Lab Collect CBC w/ Diff, Blood, Routine, 03/03/24 0:29:00 EDT, every morning, for 3 days, Lab Collect CEA, Blood, Add On, 03/03/24 0:28:00 EDT, Once, Lab Collect Contraindicated, 03/03/24 0:28:00 EDT, Contraindicated due to Medical Diagnosis / Will re- evaluateas Patient condition changes Diet Order, 03/03/24 0:28:00 EDT, NPO Incentive Spirometry Nursing, 03/03/24 0:28:00 EDT Intake and Output, 03/03/24 0::00 EDT, every 12 hr (linda), q shift, 03/03/24 9:00:00 EDT Patient Condition, 03/03/24 0:28:00 EDT, Condition Good/ Stable Peripheral IV Care, 03/03/24 0:28:00 EDT, Stop date 03/03/24 0:28:00 EDT, Complete with shift assessments and PRN Peripheral IV Insertion, 03/03/24 0:28:00 EDT, Upon admission if not in place prior to admit Resuscitation Status, 03/03/24 0:28:00 EDT, Full Code Sequential Compression Devices (SCD's), 03/03/24 0:28:00 EDT, Constant Order, 03/03/24 0:28:00 EDT Sequential Compression Devices (SCD's), 03/03/24 0:28:00 EDT, Constant Order, 03/03/24 0:28:00 EDT Up ad Delisa, 03/03/24 0::00 EDT, Constant Order, at nurse's discretion, 03/03/24 0:28:00 EDT Vital Signs, 03/03/24 0:28:00 EDT, every 4 hr (linda) Problem List/Past Medical History Ongoing Family history of colon cancer in father GERD (gastroesophageal reflux disease) Hematochezia Melena Tobacco user Historical No qualifying data Medications Inpatient acetaminophen, 1000 mg= 100 mL, IV Piggyback, every 6 hr, PRN HYDROmorphone, 0.25 mg= 0.25 mL, IV Push, every 2 hr, PRN Lactated Ringers Injection 1,000 mL, 1000 mL, IV LR 1,000 mL, 1000 mL, IV naloxone, 0.1 mg= 0.25 mL, IV Push, every 5 min, PRN ondansetron, 4 mg= 2 mL, IV Push, every 6 hr, PRN ondansetron, 4 mg= 1 tab, Oral, every 6 hr, PRN prochlorperazine, 5 mg= 1 mL, IV Push, every 4 hr, PRN prochlorperazine, 10 mg= 2 tab, Oral, every 6 hr, PRN prochlorperazine, 25 mg= 1 supp, Rectal, every 12 hr, PRN sodium chloride 0.9% flush, 10 mL, IV Flush, every 8 hr sodium chloride 0.9% flush, 10 mL, IV Flush, As Directed Home pantoprazole 40 mg oral delayed release tablet, 40 mg= 1 tab, Oral, Daily, 11 refills Allergies No Known Allergies Social History Alcohol Current, Beer, Daily- Comments: 12pk on the weekends; 2-3 beers/day Electronic Cigarette/Vaping Electronic Cigarette Use: Never. Substance Use Never Tobacco Never tobacco user Tobacco Use:.- Comments: Nicotine pouches Family History Colon cancer, stage 2: Father. Lab Results Test Name Test Result Date/Time WBC 11.5 K/mcL 03/02/2024 21:39 EDT RBC 3.67 Million/mcL 03/02/2024 21:39 EDT Hgb 9.2 g/dL 03/02/2024 21:39 EDT Hct 28.4 % 03/02/2024 21:39 EDT MCV 77.5 fL 03/02/2024 21:39 EDT MCH 25.0 pg 03/02/2024 21:39 EDT MCHC 32.2 g/dL 03/02/2024 21:39 EDT RDW-CV 15.0 % 03/02/2024 21:39 EDT Platelets 334 K/mcL 03/02/2024 21:39 EDT MPV 6.7 fL 03/02/2024 21:39 EDT Neutro Auto 90.7 % 03/02/2024 21:39 EDT Lymph Auto 5.3 % 03/02/2024 21:39 EDT [place] Auto 3.5 % 03/02/2024 21:39 EDT Eos, Auto 0.20 % 03/02/2024 21:39 EDT Basophil Auto 0.3 % 03/02/2024 21:39 EDT Neutro Absolute 10.4 K/mcL 03/02/2024 21:39 EDT Lymph Absolute 0.6 K/mcL 03/02/2024 21:39 EDT [place] Absolute 0.4 K/mcL 03/02/2024 21:39 EDT Eos Absolute 0.0 K/mcL 03/02/2024 21:39 EDT Baso Absolute 0.0 K/mcL 03/02/2024 21:39 EDT RBC Morph Abnormal 03/02/2024 21:39 EDT Hypochromia 1+ 03/02/2024 21:39 EDT Microcyte 1+ 03/02/2024 21:39 EDT Plt Estimation Normal 03/02/2024 21:39 EDT Plt Large Few 03/02/2024 21:39 EDT Slide Review Morph Only 03/02/2024 21:39 EDT Sodium Level 139 mmol/L 03/02/2024 21:39 EDT Potassium Level 3.5 mmol/L 03/02/2024 21:39 EDT Chloride Level 105 mmol/L 03/02/2024 21:39 EDT CO2 25 mmol/L 03/02/2024 21:39 EDT Alk Phos 114 IntlUnit/L 03/02/2024 21:39 EDT AST 10 IntlUnit/L 03/02/2024 21:39 EDT ALT 11 IntlUnit/L 03/02/2024 21:39 EDT BUN 18 mg/dL 03/02/2024 21:39 EDT Glucose Level 136 mg/dL 03/02/2024 21:39 EDT Creatinine Level 1.00 mg/dL 03/02/2024 21:39 EDT BUN/Creat Ratio 18.0 03/02/2024 21:39 EDT eGFR CKD-EPI 95 mL/min/1.73 m2 03/02/2024 21:39 EDT Calcium Level 8.7 mg/dL 03/02/2024 21:39 EDT Protein Total 6.5 g/dL 03/02/2024 21:39 EDT Albumin Level 3.5 g/dL 03/02/2024 21:39 EDT Globulin 3.0 g/dL 03/02/2024 21:39 EDT A/G Ratio 1.2 g/dL 03/02/2024 21:39 EDT Bilirubin Total 1.1 mg/dL 03/02/2024 21:39 EDT Anion Gap 9.0 03/02/2024 21:39 EDT Lactic Acid Lvl 1.1 mmol/L 03/02/2024 21:40 EDT Lipase Level 6 unit/L 03/02/2024 21:39 EDT Magnesium Level 2.0 mg/dL 03/02/2024 21:39 EDT Osmolality 282 mOsm/kg 03/02/2024 21:39 EDT Urine Srce Clean Catch 03/02/2024 23:34 EDT UA Color YELLOW. 03/02/2024 23:34 EDT UA Appear CLEAR. 03/02/2024 23:34 EDT UA Glucose NEGATIVE 03/02/2024 23:34 EDT UA Bili NEGATIVE 03/02/2024 23:34 EDT UA Ketones 15 03/02/2024 23:34 EDT UA Spec Grav 1.010 03/02/2024 23:34 EDT UA Blood NEGATIVE 03/02/2024 23:34 EDT UA pH 5.50 03/02/2024 23:34 EDT UA Protein NEGATIVE 03/02/2024 23:34 EDT UA Urobilinogen 0.2 03/02/2024 23:34 EDT UA Nitrite NEGATIVE 03/02/2024 23:34 EDT UA Leuk Est NEGATIVE 03/02/2024 23:34 EDT Electronically Signed on 03/03/24 12:43 AM Julio Hermosillo MD Discharge summary * Julio Hermosillo MD: PERFORM Event Display: Discharge Summary Authored Date: [id number] ACE TODD :1980 Age:43 years Sex:Male Visit Date:03/02/2024 Admission Information Ace Todd is a 43-year-old male who presented to the emergency department today with complaintsof??abdominal pain, vomiting, and??hematochezia.?? Ace??was in his usual state of health prior to the onset of??hematochezia in January for which he was evaluated??in the ED. ??He was seen??in follow-up by GI??and started on pantoprazole. ??A plan was made for EGD and colonoscopy. He had improvement in his??upper GI complaints??with pantoprazole. ??He has had no significant episodes of hematochezia until??earlier today??when he began having??diffuse crampy abdominal pain. ??He had an episode??of nausea and vomiting??this afternoon which she describes as like coffee grounds. ??He had??bowel movement this??afternoon which was??bloody. ??Has been passing flatus. ??He said no constipation to this point.?? He denies fevers but has been??subjectively cold??this evening.?? He states that his weight has been??stable.?? He has no significant history of inflammatory bowel disease. ??He has a significant family history of colon cancer??in his father who was diagnosed at age 38. ??He was treated initially but then??eventually had a recurrence and?? of colon cancer approximately 16 years ago.?? Ace has had no prior colonoscopies.?? He has had no prior surgeries. ??He takes no medications other than pantoprazole on a regular basis. ??He denies other significant medical problems.?? He was drinking regularly prior to his initial presentation??in January, but has??stopped drinking since that time. In the emergency department, he was evaluated with labs notable for anemia. ??A CT abdomen/pelvis was performed demonstrated dilated colon and??extending from the cecum to the??splenic flexure where there is an area of luminal narrowing??and wall thickening concerning for neoplasm??and partial obstruction.?? The distal colon was decompressed. ??Small bowel was not significantly dilated.?? General surgery was consulted and admitted for ongoing workup Hospital Course Ace was admitted??overnight and??treated with bowel rest??and IV fluid resuscitation. ??He had??a significant drop in his hemoglobin overnight to 6.9??following resuscitation. ??He was transfused2 units PRBCs.?? Given the lack of??obstipation symptoms prior to presentation??and??a patent lumenvisible??on CT Abdomen/pelvis, we??elected proceed with a slow colon prep??anticipation of??colonoscopy the following day. ??His hematochezia resolved. ??He responded appropriately to transfusion. ??His hemoglobin was stable??posttransfusion. ??On the hospital day #2, he was taken for colonoscopy which was notable for a partially obstructing mass??near the level of the splenic flexure which was bi opsied and the mucosa just distal to this tattooed.?The mass was not to be able to be traversed with the colonoscope.?? The proximal colon was unable to be assessed.?? He tolerated colonoscopy well. ??His diet was advanced postoperative full liquids. ??He tolerated this without nausea or vomiting.?? He continue to move his bowels??and pass flatus.?? By hospital day #3, his diet was advanced to a low residue diet.?? We discussed his options for management for presumed??partially obstructing colon cancer. ??Given his young age and significant family history,??recommend??waiting for??biopsy results at a minimum??prior to consideration of??surgery. ??He may benefit from??genetics given his significant family history as well.?? In this setting, I recommended??urgent referral to??[facility] colorectal surgery for ongoing workup and likely surgical management to which??Ace was in agreement.??He was deemed appropriate for discharge to home on oral low residue diet on hospital day #3. Significant Findings Partially obstructing??malignant appearing??mass in the??of the colon near the??splenic flexure??onCT and colonoscopy. ??Biopsies obtained and are pending.?? Site tattooed. Procedures and Treatment Provided Colonoscopy with biopsy??03/04/2024. Physical Exam Vitals & Measurements T:??36.9?C ??(Temporal Artery)?? TMIN:??36.3?C ??(Temporal Artery)?? TMAX:??37.2?C ??(Temporal Artery)?? HR:??78??(Peripheral)?? RR:??18?? BP:??103/71?? SpO2:??97%?? Pain Score:??2?? O2 Therapy:??Room air?? General: No acute distress, pleasant, conversant CV: RRR Pulmonary: Regular breathing rate and effort Abdomen: Soft, nondistended,??nontender to palpation??extremities: No edema Skin: Pale, warm, well-perfused Procedure/Surgical History ???Colonoscopy Biopsy (03/04/2024) Social History Alcohol Current, Beer, Daily- Comments: 12pk on the weekends; 2-3 beers/day Electronic Cigarette/Vaping Electronic Cigarette Use: Never. Home/Environment Lives with Children, Significant other. Living situation: Home/Independent. Substance Use Never Tobacco Never tobacco user Tobacco Use:.- Comments: Nicotine pouches Lab Results Last 72 Hours?? Chemistry ? Event Name?? Event Result?? Date/Time?? Sodium Level 142 mmol/L 03/05/24 06:00:00 Potassium Level 3.8 mmol/L 03/05/24 06:00:00 Chloride Level 107 mmol/L 03/05/24 06:00:00 CO2 31 mmol/L 03/05/24 06:00:00 Alk Phos 114 IntlUnit/L??High 03/02/24 21:39:00 AST 10 IntlUnit/L??Low 03/02/24 21:39:00 ALT 11 IntlUnit/L 03/02/24 21:39:00 BUN 5 mg/dL??Low 03/05/24 06:00:00 Glucose Level 110 mg/dL??High 03/05/24 06:00:00 Creatinine Level 0.7 mg/dL 03/05/24 06:00:00 BUN/Creat Ratio 7.1??Low 03/05/24 06:00:00 eGFR CKD-EPI 117 mL/min/1.73 m2 03/05/24 06:00:00 Calcium Level 8 mg/dL??Low 03/05/24 06:00:00 Protein Total 6.5 g/dL 03/02/24 21:39:00 Albumin Level 3.5 g/dL 03/02/24 21:39:00 Globulin 3 g/dL 03/02/24 21:39:00 A/G Ratio 1.2 g/dL 03/02/24 21:39:00 Bilirubin Total 1.1 mg/dL??High 03/02/24 21:39:00 Anion Gap 4 03/05/24 06:00:00 Lactic Acid Lvl 1.1 mmol/L 03/02/24 21:40:00 Lipase Level 6 unit/L??Low 03/02/24 21:39:00 Magnesium Level 2 mg/dL 03/02/24 21:39:00 Osmolality 281 mOsm/kg 03/05/24 06:00:00 ? Hematology ? Event Name?? Event Result?? Date/Time?? WBC 6.2 K/mcL 03/05/24 06:00:00 RBC 3.21 Million/mcL??Low 03/05/24 06:00:00 Hgb 8.6 g/dL??Low 03/05/24 06:00:00 Hct 25.1 %??Low 03/05/24 06:00:00 MCV 78.2 fL??Low 03/05/24 06:00:00 MCH 26.8 pg??Low 03/05/24 06:00:00 MCHC 34.2 g/dL 03/05/24 06:00:00 RDW-CV 15.4 %??High 03/05/24 06:00:00 Platelets 226 K/mcL 03/05/24 06:00:00 MPV 6.7 fL??Low 03/05/24 06:00:00 Neutro Auto 69.2 % 03/05/24 06:00:00 Lymph Auto 18.7 %??Low 03/05/24 06:00:00 [place] Auto 10.1 %??High 03/05/24 06:00:00 Eos, Auto 1.7 % 03/05/24 06:00:00 Basophil Auto 0.3 % 03/05/24 06:00:00 Neutro Absolute 4.3 K/mcL 03/05/24 06:00:00 Lymph Absolute 1.2 K/mcL 03/05/24 06:00:00 [place] Absolute 0.6 K/mcL 03/05/24 06:00:00 Eos Absolute 0.1 K/mcL 03/05/24 06:00:00 Baso Absolute 0 K/mcL 03/05/24 06:00:00 RBC Morph Abnormal Abnormal 03/05/24 06:00:00 Anisocyte 1+ 03/03/24 08:00:00 Hypochromia 1+ Abnormal 03/05/24 06:00:00 Microcyte 1+ Abnormal 03/05/24 06:00:00 Plt Estimation Normal 03/05/24 06:00:00 Plt Large Few Abnormal 03/04/24 06:14:00 Polychrom 1+ Abnormal 03/03/24 08:00:00 Slide Review Morph Only 03/05/24 06:00:00 ? Urinalysis ? Event Name?? Event Result?? Date/Time?? Urine Srce Clean Catch 03/02/24 23:34:00 UA Color YELLOW. 03/02/24 23:34:00 UA Appear CLEAR. 03/02/24 23:34:00 UA Glucose NEGATIVE 03/02/24 23:34:00 UA Bili NEGATIVE 03/02/24 23:34:00 UA Ketones 15 Abnormal 03/02/24 23:34:00 UA Spec Grav 1.01 03/02/24 23:34:00 UA Blood NEGATIVE 03/02/24 23:34:00 UA pH 5.5 03/02/24 23:34:00 UA Protein NEGATIVE 03/02/24 23:34:00 UA Urobilinogen 0.2 03/02/24 23:34:00 UA Nitrite NEGATIVE 03/02/24 23:34:00 UA Leuk Est NEGATIVE 03/02/24 23:34:00 ? All Other Results ? Event Name?? Event Result?? Date/Time?? CEA 0.2 ng/mL 03/02/24 21:40:00 ABO/Rh Echo A POS 03/03/24 06:07:00 ABSC Echo Negative ABSC 03/03/24 06:07:00 RBC Product Ready Done 03/03/24 06:45:00 Crossmatch - IS Compatible 03/03/24 06:07:00 Crossmatch - IS Compatible 03/03/24 06:07:00 TRANSFUSED TRANSFUSED 03/03/24 12:39:00 ? Diagnostic Results X-Ray:?? Computed Tomography: ?? CT Chest w/ Contrast ?? 03/03/24 00:27:51 PROCEDURE INFORMATION: Exam: CT Chest With Contrast; Diagnostic Exam date and time: 03/03/2024 12:27 AM Age: 43 years old Clinical indication: Condition or disease; Other: Evaluate for mets; Additional info: Evaluate for metstatis ?? TECHNIQUE: Imaging protocol: Diagnostic computed tomography of the chest with contrast. Radiation optimization: All CT scans at this facility use at least one of these dose optimization techniques: automated exposure control; mA and/or kV adjustment per patient size (includes targeted exams where dose is matched to clinical indication); or iterative reconstruction. Contrast material: ISOVUE 300; Contrast volume: 100 ml; Contrast route: INTRAVENOUS (IV); ?? COMPARISON: CT ABD/PELVIS W CONTRAST 03/02/2024 9:42 PM ?? FINDINGS: Lungs: No evidence of nodules or metastatic disease. No evidence endobronchial lesion. No evidence of focal parenchymal air space disease. Pleural spaces: No pneumothorax. No pleural effusion. Heart: No evidence of filling defects in the cardiac chambers. Heart appears within normal limits. No significant pericardial effusion. Lymph nodes: Unremarkable. No enlarged lymph nodes. Vasculature: No evidence of thoracic aortic dissection. ?? Bones/joints: Unremarkable. No acute fracture. Soft tissues: Unremarkable. ?? IMPRESSION: 1. No evidence of metastatic disease. 2. No evidence of focal consolidation. ? THIS DOCUMENT HAS BEEN ELECTRONICALLY SIGNED BY FRANCHESCA ROBLES MD on 03/03/2024 12:53 AM ?? Signed By: Franchesca Robles MD ?? CT Abdomen and Pelvis w/ Contrast ?? 03/02/24 21:42:41 PROCEDURE INFORMATION: Exam: CT Abdomen And Pelvis With Contrast Exam date and time: 03/02/2024 9:42 PM Age: 43 years old Clinical indication: Abdominal pain; Localized; Right lower quadrant (rlq); Additional info: Abd pain rlq ?? TECHNIQUE: Imaging protocol: Computed tomography of the abdomen and pelvis with contrast. Radiation optimization: All CT scans at this facility use at least one of these dose optimization techniques: automated exposure control; mA and/or kV adjustment per patient size (includes targeted exams where dose is matched to clinical indication); or iterative reconstruction. Contrast material: ISOVUE 300; Contrast volume: 100 ml; Contrast route: INTRAVENOUS (IV); ?? COMPARISON: No relevant prior studies available. ?? FINDINGS: Liver: Normal. No mass. Gallbladder and bile ducts: Normal. No calcified stones. No ductal dilation. Pancreas: Normal. No ductal dilation. Spleen: Normal. No splenomegaly. Adrenal glands: Normal. No mass. Kidneys and ureters: Normal. No hydronephrosis. Stomach and bowel: Moderate air-fluid distension of the cecum, ascending, transverse colon up to site 6 cm length area circumferential up to 13 mm wall thickening and inhomogeneity of the surrounding fat involving splenic flexure colon; colon distal to mass collapsed. More proximal colon prior to site of wall thickening partially obstructed (lumen appears patent) by stricturing of this area. Cecum distended up to 8 cm. No evidence of small bowel obstruction. Appendix: Visualized portion appendix normal. ?? Intraperitoneal space: Unremarkable. No free air. No significant fluid collection. Vasculature: Unremarkable. No abdominal aortic aneurysm. Lymph nodes: Unremarkable. No enlarged lymph nodes. Urinary bladder: Unremarkable as visualized. Reproductive: Prostate appears within normal limits. Bones/joints: Unremarkable. No acute fracture. Soft tissues: Unremarkable. ?? IMPRESSION: 1. Focal circumferential mass vs inflammation involving splenic flexure colon contributing to partial obstruction more proximal colon. ?? 2. No evidence of small bowel obstruction. ? THIS DOCUMENT HAS BEEN ELECTRONICALLY SIGNED BY FRANCHESCA ROBLES MD on 03/02/2024 10:27 PM ?? 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 ??Has had no ongoing hematochezia.?Despite concern for partial colonic obstruction, he was able to tolerate a??colon prep??without issue.?? Intermittent colonoscopy yesterday which demonstrated a mass??in the region of the splenic flexure??whichwas??partially obstructing and??could not be traversed with the colonoscope. ??Biopsies were taken and the site was tattooed.?? We discussed the strategy for management. ??Given his young age and??significant family history, I recommend evaluation by a colorectal surgeon at a??cancer center.?? Thiswill allow for appropriate consideration of genetic testing and??discussion of the extent of potential resection if he is at high risk for??synchronous or metachronous cancers.?Ace demonstrated good understanding with this plan. ??He is tolerating a diet well. ??I recommend that he continue??a low residue diet and??MiraLAX daily.?? In the absence of ongoing bleeding or??progression of obstructive symptoms, he we have the time to accommodate??further evaluation and discussion of surgical options.?? Will plan to discharge home??today. ??I will send an urgent referral to [facility] colorectal [place] rgjay as discussed.?? I will forward the pathology results from??colon biopsies??when available. Orders: MiraLax, 17 g = 1 packets, Oral, Powder-Recon, Daily, PRN constipation, First Dose: 03/05/24 8:39:00 EDT, Routine MiraLax, 17 g = 1 packets, Oral, Daily, PRN constipation, 0 Refill(s) Diet Order, 03/05/24 8:39:00 EDT, Low Residue Discharge Disposition, 03/05/24 10:20:00 EDT, Home Independently Discharge Patient, 03/05/24 10:20:00 EDT [facility] Task, 03/05/24 10:20:00 EDT, Stop date 03/05/24 10:20:00 EDT, Check with pharmacy / [facility] for home meds prior to discharge All Diagnoses This Visit Neoplasm of splenic flexure of colon Partial obstruction of colon Iron deficiency anemia secondary to blood loss (chronic) Hematochezia Anemia due to blood loss Patient Discharge Condition Stable Discharge Disposition Home independently Patient Instructions An urgent referral to [facility] colorectal surgery will be made??for ongoing evaluation and??management of colon??tumor You should continue a??low residue diet??as tolerated.?Protein shakes or??nutritional supplements like boost or Ensure are helpful. Take a stool softener like MiraLAX daily Call or be seen emergently if you develop??lightheadedness, dizziness,??recurrent??bloody stools, or vomiting Patient Education Colonoscopy, Adult, Care After Gastrointestinal Bleeding Follow Up With When Contact Information Julio Hermosillo MD Within 1 month, only if needed [facility] [address] [place], [place] [id number]- Additional Instructions: Medication Reconciliation New Prescription polyethylene glycol 3350 (MiraLax)17 Gram Oral (given by mouth) every day as needed constipation. ?? Unchanged acetaminophen (acetaminophen 500 mg oral tablet)1 tab Oral (given by mouth) 2 times a day as neededas needed for pain. ?? pantoprazole (pantoprazole 40 mg oral delayed release tablet)1 tab Oral (given by mouth) every day for 30 Days. 30 minutes before evening meal. Refills: 11. [1]??Progress/SOAP Note; Julio Hermosillo MD 03/05/2024 09:19 EDT Electronically Signed on 03/05/2024 10:37 EDT Julio Hermosillo MD Patient Care team information Care Team Related Persons Name: BRUNILDA WINTERS Name: LEIGHTON TODD
--- OUTSIDE RECORDS SUMMARY | 2024-04-18 03:03 | XMS_ITS | Continuity of Care Document ---
Author Name Unknown Organization [facility] Address [address] [place] [address] Encounter [facility] FIN NBR [id number] Date(s): 01/19/24 - 01/19/24 [facility] [address] [place] [address]- Encounter Diagnosis GI (gastrointestinal bleed)(Discharge Diagnosis) - 01/19/24 Discharge Disposition: Home or Self Care Attending Physician: Quinten Preston DO Admitting Physician: Quinten Preston DO Allergies, Adverse Reactions, Alerts No Known Allergies Assessment and Plan Extracted from: Title:ED Provider Note Author:CELINE Temple Date:01/19/24 Assessment/Plan 1.??GI (gastrointestinal bleed)??K92.2 ??Prescription of pantoprazole sent. ??Close GI follow-up.?? I will also send referral for primary care. ??Strict return precautions understood. Ordered: pantoprazole 40 mg oral delayed release tablet, 80 mg = 2 tab, Oral, Daily, X 30 days, # 60 tab, 0 Refill(s), 02/18/24 13:13:00 EDT Discharge Patient, 01/19/24 13:18:00 EDT, Home Independently ?? Patient is discharged home. ??Will start on??pantoprazole daily. ??Plan on close GI follow-up and strict return precautions discussed in depth. Patient Education Gastrointestinal Bleeding Follow Up With When Contact Information Follow up with specialist Within 1 month Additional Instructions: Drink Fluids Within 1 month Additional Instructions: Medications pantoprazole 40 mg oral delayed release tablet 80 mg = 2 tab, Oral, Daily, X 30 days, # 60 tab, 0 Refill(s), 02/18/24 12:13:00 PM CDT Start Date: 01/19/24 Stop Date: 02/18/24 Status: Ordered Mental Status 01/19/24 Eye Opening Response [place] Spontaneous ly Best Verbal Response [place] Oriented Best Motor Response Moses Obeys comman ds [place] Coma Score 15 Results Laboratory List Name Date Comprehensive Metabolic Panel (CMP) GI Panel ([facility]) 01/19/24 ABO/Rh Echo 01/19/24 ABSC Echo (Antibody Screen Echo) 01/19/24 CBC w/ Diff 01/19/24 PT/ INR 01/19/24 PTT 01/19/24 Automated Diff 01/19/24 Most recent to oldest [Reference Range]: 1 WBC [4.8-10.8 K/mcL] 10.3 K/mcL (01/19/24 11:42 AM) RBC [4.70-6.10 Million/mcL] 4.29 Million /mcL *LOW* (01/19/24 11:42 AM) Neutro Auto [42.2-75.2 %] 79.2 % *HI* (01/19/24 11:42 AM) Lymph Auto [20.5-51.1 %] 12.9 % *LOW* (01/19/24 11:42 AM) [place] Auto [1.7-9.3 %] 6.6 % (01/19/24 11:42 AM) Basophil Auto [0.0-0.8 %] 0.5 % (01/19/24 11:42 AM) Prothrombin Time [9.1-10.6 seconds] 9.9 seconds (01/19/24 11:42 AM) INR [0.9-1.1] 1.0 1 (01/19/24 11:42 AM) BUN [7-25 mg/dL] 10 mg/dL (01/19/24 12:28 PM) Glucose Level [70-109 mg/dL] 87 mg/dL (01/19/24 12:28 PM) Potassium Level [3.5-5.1 mmol/L] 4.1 mmo l/L (01/19/24 12:28 PM) Baso Absolute [0.0-0.2 K/mcL] 0.0 K/mcL (01/19/24 11:42 AM) MCV [80.0-94.0 fL] 82.4 fL (01/19/24 11:42 AM) AST [13-39 IntlUnit/L] 14 IntlUnit/L (01/19/24 12:28 PM) ALT [7-52 IntlUnit/L] 27 IntlUnit/L (01/19/24 12:28 PM) MCHC [32.0-37.0 g/dL] 32.8 g/dL (01/19/24 11:42 AM) Osmolality [275-295 mOsm/kg] 270 mOsm/kg *LOW* (01/19/24 12: PM) Sodium Level [136-145 mmol/L] 136 mmol/L (01/19/24 12:28 PM) Lymph Absolute [1.2-3.4 K/mcL] 1.3 K/mcL (01/19/24 11:42 AM) Hct [42.0-52.0 %] 35.4 % *LOW* (01/19/24 11:42 AM) Partial Thromboplastin Time [21.3-28.4 s econds] 25.4 seconds (01/19/24 11:42 AM) Calcium Level [8.6-10.3 mg/dL] 7.8 mg/dL *LOW* (01/19/24 12:28 PM) [place] Absolute [0.1-0.6 K/mcL] 0.7 K/mcL *HI* (01/19/24 11:42 AM) Albumin Level [3.5-5.7 g/dL] 3.2 g/dL *LOW* (01/19/24 12:28 PM) Protein Total [6.4-8.9 g/dL] 6.1 g/dL *LOW* (01/19/24 12:28 PM) MCH [27.0-31.0 pg] 27.1 pg (01/19/24 11:42 AM) Neutro Absolute [1.4-6.5 K/mcL] 8.2 K/mc L *HI* (01/19/24 11:42 AM) Bilirubin Total [0.3-1.0 mg/dL] 0.9 mg/d L (01/19/24 12:28 PM) Hgb [14.0-18.0 g/dL] 11.6 g/dL *LOW* (01/19/24 11:42 AM) Alk Phos [34-104 IntlUnit/L] 116 IntlUni t/L *HI* (01/19/24 12:28 PM) MPV [7.4-10.4 fL] 6.6 fL *LOW* (01/19/24 11:42 AM) Platelets [130-400 K/mcL] 386 K/mcL (01/19/24 11:42 AM) CO2 [21-31 mmol/L] 26 mmol/L (01/19/24 12:28 PM) Eos Absolute [0.0-0.2 K/mcL] 0.1 K/mcL (01/19/24 11:42 AM) Chloride Level [98-107 mmol/L] 104 mmol/ L (01/19/24 12:28 PM) RDW-CV [11.5-14.5 %] 14.0 % (01/19/24 11:42 AM) Adenovirus F 40/41 GIP-BFire [Not Detect ed] Not Detected (01/19/24 11:51 AM) Astrovirus GIP-BFire [Not Detected] Not Detected (01/19/24 11:51 AM) Cyclospora cayetanensis GIP-BFire [Not D etected] Not Detected (01/19/24 11:51 AM) Clostridioides difficile toxin A/B -BFir [Not Detected] Not Detected (01/19/24 11:51 AM) Campylobacter GIP-BFire [Not Detected] N ot Detected (01/19/24 11:51 AM) Cryptosporidium GIP-BFire [Not Detected] Not Detected (01/19/24 11:51 AM) E. coli O157 GIP-BFire [Not Detected] N/ A (01/19/24 11:51 AM) Entamoeba histolytica GIP-BFire [Not Det ected] Not Detected (01/19/24 11:51 AM) Enteroaggregative E. coli GIP-BFire [Not Detected] Not Detected (01/19/24 11:51 AM) Enteropathogenic E. coli GIP-BFire [Not Detected] Not Detected (01/19/24 11:51 AM) Enterotoxige E. coli LT/ST GIP-BFire [No t Detected] Not Detected (01/19/24 11:51 AM) Giardia lamblia GIP-BFire [Not Detected] Not Detected (01/19/24 11:51 AM) Norovirus GI/GII GIP-BFire [Not Detected ] Not Detected (01/19/24 11:51 AM) Plesiomonas shigelloides GIP-BFire [Not Detected] Not Detected (01/19/24 11:51 AM) Rotavirus A GIP-BioF [Not Detected] Not Detected (01/19/24 11:51 AM) Salmonella GIP-BFire [Not Detected] Not Detected (01/19/24 11:51 AM) Sapovirus GIP-BFire [Not Detected] Not D etected (01/19/24 11:51 AM) Shiga-toxin1/2-prod E.coli GIP-BFire [No t Detected] Not Detected (01/19/24 11:51 AM) Shigella/Enteroinv E. coli GIP-BFire [No t Detected] Not Detected (01/19/24 11:51 AM) Vibrio cholerae GIP-BFire [Not Detected] Not Detected (01/19/24 11:51 AM) Vibrio species GIP-BFire [Not Detected] Not Detected (01/19/24 11:51 AM) Yersinia enterocolitica GIP-BFire [Not D etected] Not Detected (01/19/24 11:51 AM) A/G Ratio [1.0-2.5 g/dL] 1.1 g/dL (01/19/24 12:28 PM) BUN/Creat Ratio [8.0-20.0] 14.3 (01/19/24 12:28 PM) Globulin [2.3-3.5 g/dL] 2.9 g/dL (01/19/24 12:28 PM) Creatinine Level [0.70-1.30 mg/dL] 0.70 mg/dL (01/19/24 12:28 PM) ABO/Rh Echo A POS *Unknown* (01/19/24 11:42 AM) Anion Gap [3.0-12.0] 6.0 (01/19/24 12:28 PM) Eos, Auto [0.00-3.00 %] 0.80 % (01/19/24 11:42 AM) eGFR CKD-EPI [>=60 mL/min/1.73 m2] 117 m L/min/1.73 m2 (01/19/24 12:28 PM) ABSC Echo Negative ABSC (01/19/24 11:42 AM) 1Interpretive Data: THERAPEUTIC INR RANGES FOR WARFARIN Uncomplicated venous thromboembolic disease 2-3 Lupus Anticoagulant and recurrent thrombosis 3-3.5 Mechanical prosthetic valve or recurrent thrombosis 2.5-3.5 Vital Signs Most recent to oldest [Reference Range]: 1 2 3 Temperature Temporal Artery [36-38 Deg C] 36.7 Deg C (01/19/24 11:14 AM) Peripheral Pulse Rate [60-100 bpm] 102 bpm *HI* (01/19/24 1:00 PM) 105 bpm *HI* (01/19/24 12:30 PM) 100 bpm (01/19/24 12:00 PM) Respiratory Rate [12-24 br/min] 18 br/min (01/19/24 12:00 PM) 18 br/min (01/19/24 11:14 AM) Blood Pressure [90-140/60-90 mmHg] 124/85mmHg (01/19/24 1:00 PM) 137/92mmHg (01/19/24 12:30 PM) 128/84mmHg (01/19/24 12:00 PM) Mean Arterial Pressure, Cuff [65-140 mmHg] 98 mmHg (01/19/24 1:00 PM) 107 mmHg (01/19/24 12:30 PM) 99 mmHg (01/19/24 12:00 PM) Mean Arterial Pressure Cuff 97 mmHg (01/19/24 1:00 PM) 106 mmHg (01/19/24 12:30 PM) 94 mmHg (01/19/24 12:00 PM) Weight 61.2 kg (01/19/24 11:14 AM) Weight Dosing 61.200 kg (01/19/24 11:14 AM) Height 175 cm (01/19/24 11:14 AM) Body Mass Index 19.98 kg/m2 (01/19/24 11:14 AM) Social History Social History Type Response Tobacco Current everyday tob acco user [facility]:. [facility] Instructions Patient Education 01/19/2024 12:14:26 Gastrointestinal Bleeding Gastrointestinal Bleeding Gastrointestinal (GI) bleeding [...] Follow these instructions at home: ??? Take zkze-yji-wrludge and prescription medicines only as told by [...] the cause of the bleeding. ??? Take cylb-wbo-lygpsnc and prescription medicines only as told by [...] provider. Document Revised: 05/05/2022 Document Reviewed: 05/05/2022 Elsevier Patient Education ?? 2022 [employer]. Follow Up Care 01/19/2024 11:06:07 With:Follow up with specialist Address:Unknown When:1 month With:Drink Fluids Address:Unknown When:1 month Physician Emergency department Note * CELINE Temple: PERFORM, SIGN, MODIFY Event Display: ED Note Physician Authored Date: [id number] MAI TODD :1980 Age:43 years Sex:Male Visit Date:01/19/2024 Basic Information Time Seen: CELINE Temple / 01/19/2024 11:08 Chief Complaint Under a lot of stress recently, having upper GI gas and cramping for the last month. Today noticed one episode elsy bloody diarrhea. Denies other sx, no pain. History Of Present Illness: This is a 43-year-old??male here for concern of??an episode of bloody diarrhea that occurred this morning.?? Describes it as a??dark red blood??in the stool. ??States that he is not experiencing any??abdominal pains??reflux symptoms nausea or vomiting.?? No chest pain shortness of breath.?Does have a history of reflux symptoms??but is not currently experiencing them.?? He is not every day did not drink or??drinking 3-4??beverages??a night on week nights and then a 12 pack on weekends. ??Doesnot take??NSAIDs routinely.?? States that his father was diagnosed with colon cancer at the age of 3838 years old. Review of Systems: See HPI Physical Exam Vitals & Measurements T:??36.7?C ??(Temporal Artery)?? HR:??102??(Peripheral)?? RR:??18?? BP:??124/85?? SpO2:??100%?? HT:??175??cm?? WT:??61.2??kg?? BMI:??19.98?? O2 Therapy:??Room air?? General: Patient is alert and engaging, appears well. Is in no acute distress. Speaking comfortablyin full sentences.?? Constitutional: No fevers, chills or diaphoresis.?? HEENT: Head normocephalic and atraumatic. Neck supple with FROM. Respiratory: ??No obvious work of breathing, regular rate. BS equal b/l, clear to auscultation.?? Cardiovascular: Heart regular rate and rhythm w/o murmurs, rubs or gallops. No peripheral edema present.?? GI: normoactive BS. Abdomen soft non tender, nondistended without guarding, rebound or rigidity. NoHSM Extremities: No obvious deformities. FROM.?? Integumentary: Skin warm and pink. No rashes or ecchymosis present.?? Neuro: CN III-XII grossly intact.?? Psychiatric: acting appropriate for age and circumstance. Normal mood without obvious ??affect.?? Medical Decision Making: This is a pleasant 43-year-old male??here with overt??GI bleed. ??Is in no acute distress and feelswell but anxious. ??Vitals obtained and reviewed. ??Vitals obtained and reviewed. ??He is hemodynamically stable abdominal exam benign.?? He did have another??bowel movement??right after triage??it was??smaller??amount but loose and dark red/ black??in color.?Guaiac positive.?? Given fluids and Protonix. ??Labs including??type and screen sent. While here he remained asymptomatic and did not have another??bowel movement.?? Labs show??mild anemia, BUN normal.?Concerned about a??lower GI bleed and??patient requires a??colonoscopy.?? There is no gastroenterology??on- call??today and as the patient is hemodynamically stable reliable and no l onger??having bowel movements??believe this can be done in the outpatient setting and would like??him seen early next week.?? A referral to gastroenterology was sent and I messaged Dr. Evans ??to make him aware of the patient's case. ??Patient understands the risks of the GI bleed and that??he ne eds to return to the emergency department if he begins to have??more frequent??bloody stools??any abdominal pain, dizziness, shortness of breath or syncopal episodes. Procedure No Qualifying Data Assessment/Plan 1.??GI (gastrointestinal bleed)??K92.2 ??Prescription of pantoprazole sent. ??Close GI follow-up.?? I will also send referral for primary care. ??Strict return precautions understood. Ordered: pantoprazole 40 mg oral delayed release tablet, 80 mg = 2 tab, Oral, Daily, X 30 days, # 60 tab, 0 Refill(s), 02/18/24 13:13:00 EDT Discharge Patient, 01/19/24 13:18:00 EDT, Home Independently ?? Patient is discharged home. ??Will start on??pantoprazole daily. ??Plan on close GI follow-up and strict return precautions discussed in depth. Patient Education Gastrointestinal Bleeding Follow Up With When Contact Information Follow up with specialist Within 1 month Additional Instructions: Drink Fluids Within 1 month Additional Instructions: Medication Reconciliation New Prescription pantoprazole (pantoprazole 40 mg oral delayed release tablet)2 tab Oral (given by mouth) every day for 30 Days. Refills: 0. Problem List/Past Medical History Ongoing Tobacco user Historical No qualifying data Medication Administration Given Sodium Chloride 0.9%, 1000 mL, Hydration Bolus Protonix, 40 mg, IV Push Allergies No Known Allergies Social History Alcohol Current, Beer, Daily- Comments: 12pk on the weekends; 2-3 beers/day Electronic Cigarette/Vaping Electronic Cigarette Use: Never. Tobacco Current everyday tobacco user Tobacco Use:.- Comments: Nicotine pouches Referral Orders Referral Management, Medical Service: Gastroenterology, Reason: GI bleed, Start: 01/19/24 Referral Management, Medical Service: Primary Care Physicians, Reason: routine care, seen in ED for GI bleed, Start: 01/19/24 Lab Results CBC and Differential?? LATEST RESULTS?? WBC?? 01/19/24 11:42?? 10.3?? RBC?? 01/19/24 11:42?? 4.29 ??Low?? Hgb?? 01/19/24 11:42?? 11.6 ??Low?? Hct?? 01/19/24 11:42?? 35.4 ??Low?? MCV?? 01/19/24 11:42?? 82.4?? MCH?? 01/19/24 11:42?? 27.1?? MCHC?? 01/19/24 11:42?? 32.8?? RDW-CV?? 01/19/24 11:42?? 14.0?? Platelets?? 01/19/24 11:42?? 386?? MPV?? 01/19/24 11:42?? 6.6 ??Low?? Neutro Auto?? 01/19/24 11:42?? 79.2 ??High?? Lymph Auto?? 01/19/24 11:42?? 12.9 ??Low?? [place] Auto?? 01/19/24 11:42?? 6.6?? Eos, Auto?? 01/19/24 11:42?? 0.80?? Basophil Auto?? 01/19/24 11:42?? 0.5?? Neutro Absolute?? 01/19/24 11:42?? 8.2 ??High?? Lymph Absolute?? 01/19/24 11:42?? 1.3?? [place] Absolute?? 01/19/24 11:42?? 0.7 ??High?? Eos Absolute?? 01/19/24 11:42?? 0.1?? Baso Absolute?? 01/19/24 11:42?? 0.0? Coagulation?? LATEST RESULTS?? Prothrombin Time?? 01/19/24 11:42?? 9.9?? INR?? 01/19/24 11:42?? 1.0?? Partial Thromboplastin Time?? 01/19/24 11:42?? 25.4? Routine Chemistry?? LATEST RESULTS?? Sodium Level?? 01/19/24 12:28?? 136?? Potassium Level?? 01/19/24 12:28?? 4.1?? Chloride Level?? 01/19/24 12:28?? 104?? CO2?? 01/19/24 12:28?? 26?? Alk Phos?? 01/19/24 12:28?? 116 ??High?? AST?? 01/19/24 12:28?? 14?? ALT?? 01/19/24 12:28?? 27?? BUN?? 01/19/24 12:28?? 10?? Glucose Level?? 01/19/24 12:28?? 87?? Creatinine Level?? 01/19/24 12:28?? 0.70?? BUN/Creat Ratio?? 01/19/24 12:28?? 14.3?? eGFR CKD-EPI?? 01/19/24 12:28?? 117?? Calcium Level?? 01/19/24 12:28?? 7.8 ??Low?? Protein Total?? 01/19/24 12:28?? 6.1 ??Low?? Albumin Level?? 01/19/24 12:28?? 3.2 ??Low?? Globulin?? 01/19/24 12:28?? 2.9?? A/G Ratio?? 01/19/24 12:28?? 1.1?? Bilirubin Total?? 01/19/24 12:28?? 0.9?? Anion Gap?? 01/19/24 12:28?? 6.0?? Osmolality?? 01/19/24 12:28?? 270 ??Low? Infectious Disease?? LATEST RESULTS?? Adenovirus F 40/41 GIP-BFire?? 01/19/24 11:51?? Not Detected?? Astrovirus GIP-BFire?? 01/19/24 11:51?? Not Detected?? Cyclospora cayetanensis GIP-BFire?? 01/19/24 11:51?? Not Detected?? Clostridioides difficile toxin A/B -BFir?? 01/19/24 11:51?? Not Detected?? Campylobacter GIP-BFire?? 01/19/24 11:51?? Not Detected?? Cryptosporidium GIP-BFire?? 01/19/24 11:51?? Not Detected?? E. coli O157 GIP-BFire?? 01/19/24 11:51?? N/A?? Entamoeba histolytica GIP-BFire?? 01/19/24 11:51?? Not Detected?? Enteroaggregative E. coli GIP-BFire?? 01/19/24 11:51?? Not Detected?? Enteropathogenic E. coli GIP-BFire?? 01/19/24 11:51?? Not Detected?? Enterotoxige E. coli LT/ST GIP-BFire?? 01/19/24 11:51?? Not Detected?? Giardia lamblia GIP-BFire?? 01/19/24 11:51?? Not Detected?? Norovirus GI/GII GIP-BFire?? 01/19/24 11:51?? Not Detected?? Plesiomonas shigelloides GIP-BFire?? 01/19/24 11:51?? Not Detected?? Rotavirus A GIP-BioF?? 01/19/24 11:51?? Not Detected?? Salmonella GIP-BFire?? 01/19/24 11:51?? Not Detected?? Sapovirus GIP-BFire?? 01/19/24 11:51?? Not Detected?? Shiga-toxin1/2-prod E.coli GIP-BFire?? 01/19/24 11:51?? Not Detected?? Shigella/Enteroinv E. coli GIP-BFire?? 01/19/24 11:51?? Not Detected?? Vibrio cholerae GIP-BFire?? 01/19/24 11:51?? Not Detected?? Vibrio species GIP-BFire?? 01/19/24 11:51?? Not Detected?? Yersinia enterocolitica GIP-BFire?? 01/19/24 11:51?? Not Detected? Transfusion Medicine Testing?? LATEST RESULTS?? ABO/Rh Echo?? 01/19/24 11:42?? A POS?? ABSC Echo?? 01/19/24 11:42?? Negative ABSC? Electronically Signed on 01/19/24 06:49 PM CELINE Temple Emergency department Discharge instructions * CELINE Temple: PERFORM Event Display: ED Discharge Information Authored Date: [id number] MAI TODD Kiah :1980 Age:43 years Sex:Male Visit Date:01/19/2024 Discharge Instructions We would like to thank you for allowing us to assist you with your healthcare needs. The following includes patient education materials and information regarding your injury/illness. Diagnosis from Today's Visit GI (gastrointestinal bleed) Discharge Vitals Temperature??(Temporal Artery) 98.1 ??F (36.7 ??C) Heart Rate??(Peripheral) 102 Respiratory Rate?? 18 Blood Pressure?? 124/85?? SpO2?? 100% Height?? 68.90 in (175 cm) Weight?? 134.95 lb (61.2 kg) BMI?? 19.98 Allergies No Known Allergies What to Do Next Instructions from Your Care Team You were seen here for a GI bleed.?? I have sent you in a prescription for pantoprazole to take daily??increase fluids. ??Refrain from using any NSAIDs or drinking alcohol. As we discussed this can worsen quickly and you need to return to the ED??with??continued bloody??diarrhea, abdominal pain, lightheadedness, shortness of breath,??chest pain or syncopal episodes.?? It is very important that you??have a colonoscopy and I have sent a referral to our conveyor technician.?? Have also sent a primary care referral??and would like you to be seen routinely by PCP.?Again please return with any worsening??of your bloody diarrhea.?? You Need to Schedule the Following Appointments Follow Up with??Follow up with specialist When:??Within 1 month Follow Up with??Drink Fluids When:??Within 1 month You were treated today on an emergency basis; it may be jones to contact your primary care provider to notify them of your visit today. You may have been referred to your regular doctor or a specialist, please follow up as instructed. If your condition worsens or you can't get in to see the doctor, contact the Emergency Department. Medications What How Much When Why Instructions Next Dose New pantoprazole (pantoprazole 40 mg oral delayed release tablet) 2 tab Oral (given by mouth) Every day GI (gastrointestinal bleed) Duration: 30 Days Printed Prescription Education Materials Gastrointestinal Bleeding Gastrointestinal (GI) bleeding is bleeding [...] Follow these instructions at home: ? Take qbmw-esr-gsutrkc and prescription medicines only as told by [...] the cause of the bleeding. ? Take gygb-lht-ajyrpgv and prescription medicines only as told by [...] provider. Document Revised: 05/05/2022 Document Reviewed: 05/05/2022 [facility] Patient Education ?? 2022 [employer] Tests Performed Medications and Immunizations Administered Given Sodium Chloride 0.9%, 1000 mL, Hydration Bolus Protonix, 40 mg, IV Push Lab Test Name Test Result Date/Time WBC 10.3 K/mcL 01/19/2024 11:42 EDT RBC 4.29 Million/mcL 01/19/2024 11:42 EDT Hgb 11.6 g/dL 01/19/2024 11:42 EDT Hct 35.4 % 01/19/2024 11:42 EDT MCV 82.4 fL 01/19/2024 11:42 EDT MCH 27.1 pg 01/19/2024 11:42 EDT MCHC 32.8 g/dL 01/19/2024 11:42 EDT RDW-CV 14.0 % 01/19/2024 11:42 EDT Platelets 386 K/mcL 01/19/2024 11:42 EDT MPV 6.6 fL 01/19/2024 11:42 EDT Neutro Auto 79.2 % 01/19/2024 11:42 EDT Lymph Auto 12.9 % 01/19/2024 11:42 EDT [place] Auto 6.6 % 01/19/2024 11:42 EDT Eos, Auto 0.80 % 01/19/2024 11:42 EDT Basophil Auto 0.5 % 01/19/2024 11:42 EDT Neutro Absolute 8.2 K/mcL 01/19/2024 11:42 EDT Lymph Absolute 1.3 K/mcL 01/19/2024 11:42 EDT [place] Absolute 0.7 K/mcL 01/19/2024 11:42 EDT Eos Absolute 0.1 K/mcL 01/19/2024 11:42 EDT Baso Absolute 0.0 K/mcL 01/19/2024 11:42 EDT Prothrombin Time 9.9 seconds 01/19/2024 11:42 EDT INR 1.0 01/19/2024 11:42 EDT Partial Thromboplastin Time 25.4 seconds 01/19/2024 11:42 EDT Sodium Level 136 mmol/L 01/19/2024 12:28 EDT Potassium Level 4.1 mmol/L 01/19/2024 12:28 EDT Chloride Level 104 mmol/L 01/19/2024 12:28 EDT CO2 26 mmol/L 01/19/2024 12:28 EDT Alk Phos 116 IntlUnit/L 01/19/2024 12:28 EDT AST 14 IntlUnit/L 01/19/2024 12:28 EDT ALT 27 IntlUnit/L 01/19/2024 12:28 EDT BUN 10 mg/dL 01/19/2024 12:28 EDT Glucose Level 87 mg/dL 01/19/2024 12:28 EDT Creatinine Level 0.70 mg/dL 01/19/2024 12:28 EDT BUN/Creat Ratio 14.3 01/19/2024 12:28 EDT eGFR CKD-EPI 117 mL/min/1.73 m2 01/19/2024 12:28 EDT Calcium Level 7.8 mg/dL 01/19/2024 12:28 EDT Protein Total 6.1 g/dL 01/19/2024 12:28 EDT Albumin Level 3.2 g/dL 01/19/2024 12:28 EDT Globulin 2.9 g/dL 01/19/2024 12:28 EDT A/G Ratio 1.1 g/dL 01/19/2024 12:28 EDT Bilirubin Total 0.9 mg/dL 01/19/2024 12:28 EDT Anion Gap 6.0 01/19/2024 12:28 EDT Osmolality 270 mOsm/kg 01/19/2024 12:28 EDT ABO/Rh Echo A POS 01/19/2024 11:42 EDT ABSC Echo Negative ABSC 01/19/2024 11:42 EDT Patient/Gold Plater Signature Patient Name:PEYTON MAI Kiah I have received this information and my questions have been answered. Patient/Gold Plater Name: Patient/Gold Plater Signature: Relationship to Patient: Witness Name/Signature: Date: Electronically Signed on: 01/19/2024 13:18 EDTSigned by:[email or web address]
--- OUTSIDE RECORDS SUMMARY | 2024-04-18 03:03 | XMS_ITS | Continuity of Care Document ---
Author Name Unknown Organization [facility] Ambulatory Clinics Address [address] [place] [address] Encounter [facility] NBR [id number] Date(s): 02/01/24 - 02/01/24 [facility] Ambulatory [facility] [address] [place], [place] [address] Encounter Diagnosis GI (gastrointestinal bleed)(Discharge Diagnosis) - 02/01/24 Melena(Discharge Diagnosis) - 02/01/24 Hematochezia(Discharge Diagnosis) - 02/01/24 GERD (gastroesophageal reflux disease)(Discharge Diagnosis) - 02/01/24 Family history of colon cancer in father(Discharge Diagnosis) - 02/01/24 Discharge Disposition: Home or Self Care Attending Physician: Monique Yanes APRN Allergies, Adverse Reactions, Alerts No Known Allergies Assessment and Plan Extracted from: Title:Office Visit Note-GI Author:Monique Yanes APRN Date:02/01/24 1.??GI (gastrointestinal ble ed)??K92.2 ??1 day of melena and hematochezia.?? None since starting pantoprazole 40 mg daily. ??Advised to continue the same. ??EGD to assess for mucosal injury, inflammation, H. pylori infection and celiac disease. ??Colonoscopy to assess for colitis or neoplasia. ??Possibility of anal fissure or internal hemorrhoids also present.?? We discussed reflux triggering foods and beverages to avoid, to avoid eating 3 hours before bedtime and eat small frequent meals.?? Advised to avoid NSAIDs. ??I will see patient 2 weeks following??EGD to discuss findings and make further recommendations.?? Advised to continue to avoid alcohol. Ordered: pantoprazole 40 mg oral delayed release tablet, 40 mg = 1 tab, Oral, Daily, 30 minutes before evening meal, X 30 days, # 30 tab, 11 Refill(s), 01/26/25 12:03:00 EDT, Pharmacy: [facility] #[id number], 177.8, cm, 02/01/24 11:36:00 EDT, Height, 61, kg, 02/01/24 11:42:00 EDT, Weight Dosing Follow-up Appointment Request [email or web address], *Est. 02/15/24 +/- 2 days, Future Order, after EGD and colonoscopy, In Approximately, [facility] Gastroenterology Surgical Procedure Booking Request LTTL, 02/01/24 12:07:00 EDT, 03/31/24 10:00:00 EDT, melena, epigastric pain,, GI (gastrointestinal bleed) Melena Hematochezia GERD (gastroesophageal reflux disease) Family history of colon cancer in father, Outpatient, EGD & Colonoscopy, Primary Pro... ?? 2.??Melena??K92.1,?? As above.?? Hematochezia??K92.1 As above.?? Ordered: Follow-up Appointment Request [email or web address], *Est. 02/15/24 +/- 2 days, Future Order, after EGD and colonoscopy, In Approximately, [facility] Gastroenterology Surgical Procedure Booking Request LTTL, 02/01/24 12:07:00 EDT, 03/31/24 10:00:00 EDT, melena, epigastric pain,, GI (gastrointestinal bleed) Melena Hematochezia GERD (gastroesophageal reflux disease) Family history of colon cancer in father, Outpatient, EGD & Colonoscopy, Primary Pro... ?? 4.??GERD (gastroesophageal reflux disease)??K21.9 ??As above.?? Suggest taking his omeprazole 40 mg 30 minutes before evening meal as pyrosis is worse at night. Ordered: Follow-up Appointment Request LT_CO, *Est. 02/15/24 +/- 2 days, Future Order, after EGD and colonoscopy, In [facility], [facility] Gastroenterology Surgical Procedure Booking Request LTTL, 02/01/24 12:07:00 EDT, 03/31/24 10:00:00 EDT, melena, epigastric pain,, GI (gastrointestinal bleed) Melena Hematochezia GERD (gastroesophageal reflux disease) Family history of colon cancer in father, Outpatient, EGD & Colonoscopy, Primary Pro... ?? 5.??Family history of colon cancer in father??Z80.0 Patient is overdue for colonoscopy for colon cancer screening??as his father was diagnosed at the age of 38.?? He is at higher risk.?? Colonoscopy scheduled as above. Ordered: Follow-up Appointment Request [email or web address], *Est. 02/15/24 +/- 2 days, Future Order, after EGD and colonoscopy, In [facility], [facility] Gastroenterology Surgical Procedure Booking Request LTTL, 02/01/24 12:07:00 EDT, 03/31/24 10:00:00 EDT, melena, epigastric pain,, GI (gastrointestinal bleed) Melena Hematochezia GERD (gastroesophageal reflux disease) Family history of colon cancer in father, Outpatient, EGD & Colonoscopy, Primary Pro... ?? Voice recognition software utilized which may result in minor insurance biller error. Future Appointments Functional Status 02/01/24 Other exposure to Infectious Disease Non e Medications pantoprazole 40 mg oral delayed release tablet 40 mg = 1 tab, Oral, Daily, 30 minutes before evening meal, X 30 days, # 30 tab, 11 Refill(s), 01/26/25 11:03:00 AM CDT, Pharmacy: [facility] #[id number], 177.8, cm, 02/01/24 11:36:00 EDT, Height, 61, kg, 02/01/24 11:42:00 EDT, Weight Dosing Start Date: 02/01/24 Stop Date: 01/26/25 Status: Ordered Problem List Condition Confirmation Course Effective Dates Status Health [facility] Informant Family history of colon cancer in father Confirmed Active GERD (gastroesophageal reflux disease) Confirmed Active Hematochezia Confirmed Active Melena Confirmed Active Vital Signs Most recent to oldest [Reference Range]: 1 Temperature Temporal Artery [36-38 Deg C ] 36.7 Deg C (02/01/24 11:36 AM) Apical Heart Rate [60-100 bpm] 96 bpm (02/01/24 11:36 AM) Blood Pressure [90-140/60-90 mmHg] 120/8 0mmHg (02/01/24 11:36 AM) Mean Arterial Pressure, Cuff [65-140 mmH g] 93 mmHg (02/01/24 11:36 AM) Weight 61.0 kg (02/01/24 11:36 AM) Weight Measured (lbs) 134.482 lb (02/01/24 11:36 AM) Weight Dosing 61.000 kg (02/01/24 11:36 AM) [place] Body Weight Calculated 73 kg (02/01/24 11:36 AM) Height 177.80 cm (02/01/24 11:36 AM) Height/Length Measured (inches) 70 inch (02/01/24 11:36 AM) BSA Measured 1.74 m2 (02/01/24 11:36 AM) Body Mass Index 19.3 kg/m2 (02/01/24 11:36 AM) Social History Social History Type Response Tobacco Never tobacco user T obacco Use:. 1 Sex 1Nicotine pouches Physician Outpatient Note * Monique Yanes APRN: PERFORM Event Display: Office Clinic Note Physician Authored Date: [id number] MAI TODD :1980 Age:43 years Sex:Male Visit Date:02/01/2024 Chief Complaint ED follow-up for diarrhea and blood in stool History of Present Illness Patient is a 43-year-old male here today requested emergency room for diarrhea and blood in stool. ??He does not currently have a PE. ??This is a??initial consult.?? While in the emergency room and guaiac positive stool??started pantoprazole 40??mg intake.?? He has epigastric pain??and feeling of??increased gas in the area. ??Denies any nausea or vomiting.?? Sometimes has constipation??with this but no changes in this. ??He moves his bowels every??2 days. ??Denies any diarrhea.?? When he presented to the emergency room he had melena or hematochezia??that day. ??Has had none since. ??Denies any changes in weight or appetite. ??Has had a lot of pyrosis??that is worse at night. ??Denies dyspepsia, dysphagia or globus sensation.?? He avoids NSAIDs.?? Couple weeks prior to presenting to the emergency room??he needs 4-6 Advil tablets??that week. ?? He has never had an EGD and colonoscopy. ?? His father had colon cancer at the age of 38.?? Denies any other family members ??with any gastrointestinal cancers, inflammatory bowel disease or celiac disease. Review of Systems General: Denies malaise or fatigue. HEENT: Denies globus sensation or dysphagia. Respiratory: Denies shortness of breath, cough, or wheeze. Cardiovascular: Denies chest pain, palpitations, lightheadedness, dizziness, syncope or peripheral edema. ?? Abdomen:??Complains of epigastric pain,??gas,??pyrosis, constipation, melena or hematochezia. ??Denies any nausea or vomiting. ??Denies diarrhea,??or changes in weight or appetite. Skin: Denies rashes or lesions. Neurological: Denies any problems with gait or balance. ?? Physical Exam Vitals & Measurements T:??36.7?C ??(Temporal Artery)?? HR:??96??(Apical)?? BP:??120/80?? SpO2:??98%?? HT:??177.80??cm?? WT:??61.0??kg?? BMI:??19.3?? BSA:??1.74?? General: Well-nourished well-developed male??in no acute distress. HEENT: Head is normocephalic, trachea midline, and no cervical lymphadenopathy. Respiratory: Respirations are even and unlabored. ??Lungs are clear to auscultation. Cardiovascular: Regular rate and rhythm with S1 and S2. Abdomen: Positive bowel sounds x4 quadrants, no masses, no guarding, no tenderness. ??No hepatosplenomegaly. ??Abdomen is soft. Skin: Warm, dry, and pink. Neurological: Alert and oriented x3, speech is clear and gait is steady. Psychological: Pleasant, calm and cooperative. Assessment/Plan 1.??GI (gastrointestinal bleed)??K92.2 ??1 day of melena and hematochezia.?? None since starting pantoprazole 40 mg daily. ??Advised to continue the same. ??EGD to assess for mucosal injury, inflammation, H. pylori infection and celiac disease. ??Colonoscopy to assess for colitis or neoplasia. ??Possibility of anal fissure or internal hemorrhoids also present.?? We discussed reflux triggering foods and beverages to avoid, to avoid eating 3 hours before bedtime and eat small frequent meals.?? Advised to avoid NSAIDs. ??I will see patient 2 weeks following??EGD to discuss findings and make further recommendations.?? Advised to continue to avoid alcohol. Ordered: pantoprazole 40 mg oral delayed release tablet, 40 mg = 1 tab, Oral, Daily, 30 minutes before evening meal, X 30 days, # 30 tab, 11 Refill(s), 01/26/25 12:03:00 EDT, Pharmacy: [facility] #[id number], 177.8, cm, 02/01/24 11:36:00 EDT, Height, 61, kg, 02/01/24 11:42:00 EDT, Weight Dosing Follow-up Appointment Request [facility], *Est. 02/15/24 +/- 2 days, Future Order, after EGD and colonoscopy, In [facility], [facility] Gastroenterology Surgical Procedure Booking Request [facility], 02/01/24 12:07:00 EDT, 03/31/24 10:00:00 EDT, melena, epigastric pain,, GI (gastrointestinal bleed) Melena Hematochezia GERD (gastroesophageal reflux disease) Family history of colon cancer in father, Outpatient, EGD & Colonoscopy, Primary Pro... ?? 2.??Melena??K92.1,?? As above.?? Hematochezia??K92.1 As above.?? [facility]: [facility]. 02/15/24 +/- 2 days, Future Order, after EGD and colonoscopy, In Approximately, [facility] Gastroenterology Surgical Procedure Booking Request LT, 02/01/24 12:07:00 EDT, 03/31/24 10:00:00 EDT, melena, epigastric pain,, GI (gastrointestinal bleed) Melena Hematochezia GERD (gastroesophageal reflux disease) Family history of colon cancer in father, Outpatient, EGD & Colonoscopy, Primary Pro... ?? 4.??GERD (gastroesophageal reflux disease)??K21.9 ??As above.?? Suggest taking his omeprazole 40 mg 30 minutes before evening meal as pyrosis is worse at night. Ordered: Follow-up Appointment Request [email or web address], *Est. 02/15/24 +/- 2 days, Future Order, after EGD and colonoscopy, In Approximately, [facility] Gastroenterology Surgical Procedure Booking Request [facility], 02/01/24 12:07:00 EDT, 03/31/24 10:00:00 EDT, melena, epigastric pain,, GI (gastrointestinal bleed) Melena Hematochezia GERD (gastroesophageal reflux disease) Family history of colon cancer in father, Outpatient, EGD & Colonoscopy, Primary Pro... ?? 5.??Family history of colon cancer in father??Z80.0 Patient is overdue for colonoscopy for colon cancer screening??as his father was diagnosed at the age of 38.?? He is at higher risk.?? Colonoscopy scheduled as above. Ordered: Follow-up Appointment Request [facility], *Est. 02/15/24 +/- 2 days, Future Order, after EGD and colonoscopy, In Approximately, [facility] Gastroenterology Surgical Procedure Booking Request [facility], 02/01/24 12:07:00 EDT, 03/31/24 10:00:00 EDT, melena, epigastric pain,, GI (gastrointestinal bleed) Melena Hematochezia GERD (gastroesophageal reflux disease) Family history of colon cancer in father, Outpatient, EGD & Colonoscopy, Primary Pro... ?? Voice recognition software utilized which may result in minor insurance biller error. Problem List/Past Medical History Ongoing Family history of colon cancer in father GERD (gastroesophageal reflux disease) Hematochezia Melena Tobacco user Historical No qualifying data Procedure/Surgical History Denies any. Medications pantoprazole 40 mg oral delayed release tablet, 40 mg= 1 tab, Oral, Daily, 11 refills Allergies No Known Allergies Social History Alcohol Current, Beer, Daily- Comments: 12pk on the weekends; 2-3 beers/day Electronic Cigarette/Vaping Electronic Cigarette Use: Never. Substance Use Never Tobacco Never tobacco user Tobacco Use:.- Comments: Nicotine pouches Family History Colon cancer, stage 2: Father. Electronically Signed on 02/01/24 12:11 PM Monique Yanes APRN
[2024-04-18 12:23] LABS: Abs Immature Grans 0.04 10^3/uL (0.0-0.06); Absolute Lymphocyte Count 1.36 10^3/uL (1.2-3.4); Absolute Monocyte Count 0.77 10^3/uL (0.1-0.8); Absolute Neutrophil Count 8.89 10^3/uL (1.2-6.7); Basophils % 0.4 %; Eosinophils % 0.9 %; HCT 33.9 % (40.0-50.0); HGB 10.2 g/dL (13.5-17.5); Immature Grans % 0.4 %; Lymphocytes % 12.1 %; MCH 23.9 pg (27.0-33.0); MCHC 30.1 % (32.0-36.0); MCV 79 fL (80-95); MPV 7.8 fL (8.0-11.0); Monocytes % 6.9 %; Neutrophils % 79.3 %; Platelet Count 373 10^3/uL (130-400); RBC 4.27 10^6/uL (4.36-5.78); RDW 17.3 % (11.8-14.1); RDW-SD 49.6 fL; WBC 11.21 10^3/uL (4.4-10.8)
[2024-04-18 12:24] LABS: Absolute Basophil Count 0.04 10^3/uL (0.0-0.2)
[2024-04-18 12:47] LABS: ALT 173 U/L (16-63); AST 57 U/L (15-37); Albumin 2.8 g/dL (3.4-5.0); Alkaline Phosphatase 584 U/L (46-116); Anion Gap 10.1 mmol/L (3-11); BUN 14 mg/dL (7-18); Bilirubin, Total 1.17 mg/dL (0.2-1.0); CO2 25.9 mmol/L (21.0-32.0); CREATININE 0.9 mg/dL (0.70-1.30); Calcium 8.9 mg/dL (8.5-10.1); Chloride 101 mmol/L (98-107); Estimated GFR 108.01 (mL/min/1.73m2); FREE T4 1.11 ng/dL (0.76-1.46); Glucose 100 mg/dL (74-106); Potassium 3.9 mmol/L (3.5-5.1); Sodium 137 mmol/L (136-145); TSH 1.43 uIU/Ml (0.36-3.74); Total Protein 7.7 g/dL (6.4-8.2)
[2024-04-18 23:15] LABS: CEA <0.5 ng/mL (See Note)
== END 2024-04-18 03:01 | disposition home or self-care (01) ==
LOC: LBO 03:01
PROVIDERS: Visit Provider Internal Medicine Hematology & Oncology
DX: C18.4 Malignant neoplasm of transverse colon (principal); Z79.899 Other long term (current) drug therapy
CPT/HCPCS: 36415; 80053; 82378; 84439; 84443; 85025

== ENCOUNTER 2024-04-24 00:57 | Outpatient (CLI) | payer BC, SELFPAY ==
[2024-04-24 11:10] LABS: Abs Immature Grans 0.02 10^3/uL (0.0-0.06); Absolute Basophil Count 0.04 10^3/uL (0.0-0.2); Absolute Eosinophil Count 0.14 10^3/uL (0.0-0.7); Absolute Monocyte Count 0.83 10^3/uL (0.1-0.8); Basophils % 0.5 %; Eosinophils % 1.9 %; HCT 34.6 % (40.0-50.0); HGB 10.5 g/dL (13.5-17.5); Immature Grans % 0.3 %; Lymphocytes % 15.9 %; MCH 23.6 pg (27.0-33.0); MCHC 30.3 % (32.0-36.0); MCV 78 fL (80-95); MPV 7.9 fL (8.0-11.0); Neutrophils % 70.4 %; Platelet Count 408 10^3/uL (130-400); RBC 4.44 10^6/uL (4.36-5.78); RDW 15.9 % (11.8-14.1); RDW-SD 45.2 fL; WBC 7.53 10^3/uL (4.4-10.8)
[2024-04-24 11:35] LABS: ALT 45 U/L (16-63); AST 12 U/L (15-37); Albumin 2.9 g/dL (3.4-5.0); Alkaline Phosphatase 421 U/L (46-116); BUN 13 mg/dL (7-18); Bilirubin, Total 0.88 mg/dL (0.2-1.0); CREATININE 0.8 mg/dL (0.70-1.30); Calcium 9.2 mg/dL (8.5-10.1); Chloride 102 mmol/L (98-107); Estimated GFR 111.92 (mL/min/1.73m2); FREE T4 1.13 ng/dL (0.76-1.46); Glucose 115 mg/dL (74-106); Sodium 136 mmol/L (136-145); TSH 0.87 uIU/Ml (0.36-3.74); Total Protein 8.1 g/dL (6.4-8.2)
[2024-04-25 10:13] LABS: CEA <0.5 ng/mL (See Note)
== END 2024-04-24 00:58 | disposition home or self-care (01) ==
LOC: LBO 00:57
PROVIDERS: Visit Provider Internal Medicine Hematology & Oncology
DX: C18.4 Malignant neoplasm of transverse colon (principal); Z79.899 Other long term (current) drug therapy
CPT/HCPCS: 36415; 80053; 82378; 84439; 84443; 85025

== ENCOUNTER 2024-05-16 02:13 | Outpatient (CLI) | payer BC, SELFPAY ==
[2024-05-16 10:00] LABS: Abs Immature Grans 0.02 10^3/uL (0.0-0.06); Absolute Basophil Count 0.03 10^3/uL (0.0-0.2); Absolute Eosinophil Count 0.09 10^3/uL (0.0-0.7); Absolute Lymphocyte Count 1.16 10^3/uL (1.2-3.4); Absolute Monocyte Count 0.35 10^3/uL (0.1-0.8); Absolute Neutrophil Count 4.53 10^3/uL (1.2-6.7); Basophils % 0.5 %; Eosinophils % 1.5 %; HCT 37.6 % (40.0-50.0); HGB 10.9 g/dL (13.5-17.5); Immature Grans % 0.3 %; Lymphocytes % 18.8 %; MCH 22.9 pg (27.0-33.0); MCV 79 fL (80-95); MPV 8.6 fL (8.0-11.0); Monocytes % 5.7 %; Neutrophils % 73.2 %; Platelet Count 287 10^3/uL (130-400); RBC 4.75 10^6/uL (4.36-5.78); RDW 18.2 % (11.8-14.1); WBC 6.18 10^3/uL (4.4-10.8)
[2024-05-16 10:27] LABS: ALT 25 U/L (16-63); AST 13 U/L (15-37); Albumin 3.2 g/dL (3.4-5.0); Alkaline Phosphatase 132 U/L (46-116); Anion Gap 7.2 mmol/L (3-11); BUN 12 mg/dL (7-18); Bilirubin, Total 0.79 mg/dL (0.2-1.0); CO2 27.8 mmol/L (21.0-32.0); Chloride 107 mmol/L (98-107); Estimated GFR 95.18 (mL/min/1.73m2); FREE T4 0.91 ng/dL (0.76-1.46); Glucose 106 mg/dL (74-106); Potassium 4.7 mmol/L (3.5-5.1); Sodium 142 mmol/L (136-145); TSH 1.65 uIU/Ml (0.36-3.74); Total Protein 7.4 g/dL (6.4-8.2)
[2024-05-16 18:16] LABS: CEA <0.5 ng/mL (See Note)
== END 2024-05-16 02:14 | disposition home or self-care (01) ==
LOC: LBO 02:13
PROVIDERS: Visit Provider Internal Medicine Hematology & Oncology
DX: C18.4 Malignant neoplasm of transverse colon (principal); Z79.899 Other long term (current) drug therapy
CPT/HCPCS: 36415; 80053; 82378; 84439; 84443; 85025

== ENCOUNTER 2024-06-06 12:26 | Outpatient (CLI) | payer BC, SELFPAY ==
[2024-06-06 12:18] LABS: Abs Immature Grans 0.01 10^3/uL (0.0-0.06); Absolute Basophil Count 0.02 10^3/uL (0.0-0.2); Absolute Eosinophil Count 0.06 10^3/uL (0.0-0.7); Absolute Monocyte Count 0.31 10^3/uL (0.1-0.8); Absolute Neutrophil Count 4.56 10^3/uL (1.2-6.7); Basophils % 0.3 %; Eosinophils % 0.9 %; HCT 39.4 % (40.0-50.0); HGB 12.1 g/dL (13.5-17.5); Immature Grans % 0.2 %; Lymphocytes % 23.2 %; MCH 23.9 pg (27.0-33.0); MCHC 30.7 % (32.0-36.0); MCV 78 fL (80-95); MPV 8.7 fL (8.0-11.0); Monocytes % 4.8 %; Neutrophils % 70.6 %; Platelet Count 261 10^3/uL (130-400); RBC 5.06 10^6/uL (4.36-5.78); RDW 19.5 % (11.8-14.1); RDW-SD 54.4 fL; WBC 6.46 10^3/uL (4.4-10.8)
[2024-06-06 12:47] LABS: ALT 20 U/L (16-63); AST 15 U/L (15-37); Albumin 4.3 g/dL (3.4-5.0); Alkaline Phosphatase 107 U/L (46-116); Anion Gap 6.4 mmol/L (3-11); BUN 13 mg/dL (7-18); Bilirubin, Total 2.63 mg/dL (0.2-1.0); CO2 28.6 mmol/L (21.0-32.0); Chloride 103 mmol/L (98-107); Estimated GFR 95.18 (mL/min/1.73m2); Glucose 93 mg/dL (74-106); Potassium 4.5 mmol/L (3.5-5.1); Sodium 138 mmol/L (136-145); TSH 2.37 uIU/Ml (0.36-3.74); Total Protein 8.3 g/dL (6.4-8.2)
[2024-06-06 14:34] LABS: Bilirubin, Direct 0.4 mg/dL (0.0-0.2)
[2024-06-06 22:25] LABS: CEA <0.5 ng/mL (See Note)
== END 2024-06-06 12:27 | disposition home or self-care (01) ==
LOC: LBO 12:26
PROVIDERS: Nurse Practitioner Family; Visit Provider Internal Medicine Hematology & Oncology
DX: C18.4 Malignant neoplasm of transverse colon (principal); Z79.899 Other long term (current) drug therapy; R17 Unspecified jaundice
CPT/HCPCS: 36415; 80053; 82248; 82378; 84439; 84443; 85025

== ENCOUNTER 2024-06-09 15:04 | Outpatient (CLI) | payer BC, SELFPAY ==
[2024-06-09 08:11] LABS: Absolute Basophil Count 0.03 10^3/uL (0.0-0.2); Absolute Eosinophil Count 0.12 10^3/uL (0.0-0.7); Absolute Lymphocyte Count 1.33 10^3/uL (1.2-3.4); Absolute Monocyte Count 0.29 10^3/uL (0.1-0.8); Absolute Neutrophil Count 2.99 10^3/uL (1.2-6.7); Basophils % 0.6 %; Eosinophils % 2.5 %; HCT 40.4 % (40.0-50.0); HGB 12.3 g/dL (13.5-17.5); Lymphocytes % 27.9 %; MCH 24.3 pg (27.0-33.0); MCHC 30.4 % (32.0-36.0); MCV 80 fL (80-95); MPV 8.6 fL (8.0-11.0); Monocytes % 6.1 %; Neutrophils % 62.9 %; Platelet Count 239 10^3/uL (130-400); RBC 5.07 10^6/uL (4.36-5.78); RDW 19.9 % (11.8-14.1); RDW-SD 55.8 fL; WBC 4.76 10^3/uL (4.4-10.8)
[2024-06-09 08:27] LABS: ALT 20 U/L (16-63); AST 14 U/L (15-37); Albumin 3.9 g/dL (3.4-5.0); Alkaline Phosphatase 101 U/L (46-116); Anion Gap 7.4 mmol/L (3-11); BUN 23 mg/dL (7-18); Bilirubin, Total 1.21 mg/dL (0.2-1.0); CO2 26.6 mmol/L (21.0-32.0); CREATININE 1.1 mg/dL (0.70-1.30); Calcium 9.4 mg/dL (8.5-10.1); Chloride 106 mmol/L (98-107); Estimated GFR 84.89 (mL/min/1.73m2); Glucose 112 mg/dL (74-106); Potassium 3.8 mmol/L (3.5-5.1); Sodium 140 mmol/L (136-145); Total Protein 7.9 g/dL (6.4-8.2)
[2024-06-09 11:39] LABS: Bilirubin, Direct 0.2 mg/dL (0.0-0.2)
== END 2024-06-09 15:05 | disposition home or self-care (01) ==
LOC: LBO 15:05
PROVIDERS: Visit Provider Internal Medicine Hematology & Oncology
DX: C18.4 Malignant neoplasm of transverse colon (principal); R17 Unspecified jaundice
CPT/HCPCS: 36415; 80053; 82248; 85025

== ENCOUNTER 2024-06-13 13:53 | Outpatient (CLI) | payer BC, SELFPAY ==
[2024-06-13 13:18] LABS: Abs Immature Grans 0.01 10^3/uL (0.0-0.06); Absolute Basophil Count 0.02 10^3/uL (0.0-0.2); Absolute Eosinophil Count 0.09 10^3/uL (0.0-0.7); Absolute Lymphocyte Count 1.24 10^3/uL (1.2-3.4); Absolute Monocyte Count 0.31 10^3/uL (0.1-0.8); Basophils % 0.4 %; Eosinophils % 1.7 %; HCT 40.4 % (40.0-50.0); HGB 12.3 g/dL (13.5-17.5); Immature Grans % 0.2 %; MCH 24.4 pg (27.0-33.0); MCHC 30.4 % (32.0-36.0); MCV 80 fL (80-95); MPV 8.6 fL (8.0-11.0); Neutrophils % 67.7 %; Platelet Count 216 10^3/uL (130-400); RBC 5.05 10^6/uL (4.36-5.78); RDW 19.8 % (11.8-14.1); RDW-SD 56.5 fL; WBC 5.17 10^3/uL (4.4-10.8)
[2024-06-13 13:43] LABS: ALT 22 U/L (16-63); AST 15 U/L (15-37); Albumin 4.2 g/dL (3.4-5.0); Alkaline Phosphatase 96 U/L (46-116); Anion Gap 6.6 mmol/L (3-11); BUN 13 mg/dL (7-18); Bilirubin, Total 2.01 mg/dL (0.2-1.0); CO2 30.4 mmol/L (21.0-32.0); CREATININE 0.9 mg/dL (0.70-1.30); Calcium 9.7 mg/dL (8.5-10.1); Chloride 101 mmol/L (98-107); Estimated GFR 108.01 (mL/min/1.73m2); Glucose 90 mg/dL (74-106); Potassium 3.9 mmol/L (3.5-5.1); Sodium 138 mmol/L (136-145); TSH 2.03 uIU/Ml (0.36-3.74); Total Protein 8.1 g/dL (6.4-8.2)
[2024-06-13 22:37] LABS: CEA <0.5 ng/mL (See Note)
== END 2024-06-13 13:54 | disposition home or self-care (01) ==
LOC: LBO 13:53
PROVIDERS: Referring Provider Internal Medicine Hematology & Oncology; Visit Provider Internal Medicine Hematology & Oncology
DX: C18.4 Malignant neoplasm of transverse colon (principal); Z79.899 Other long term (current) drug therapy
CPT/HCPCS: 36415; 80053; 82378; 84439; 84443; 85025

== ENCOUNTER 2024-06-20 08:41 | Outpatient (CLI) | payer BC, SELFPAY ==
[2024-06-20 08:35] LABS: Abs Immature Grans 0.01 10^3/uL (0.0-0.06); Absolute Basophil Count 0.02 10^3/uL (0.0-0.2); Absolute Eosinophil Count 0.06 10^3/uL (0.0-0.7); Absolute Lymphocyte Count 1.34 10^3/uL (1.2-3.4); Absolute Neutrophil Count 2.46 10^3/uL (1.2-6.7); Basophils % 0.5 %; Eosinophils % 1.4 %; HCT 41.6 % (40.0-50.0); HGB 12.9 g/dL (13.5-17.5); Immature Grans % 0.2 %; MCH 24.6 pg (27.0-33.0); MCV 79 fL (80-95); MPV 9.1 fL (8.0-11.0); Monocytes % 7.2 %; Neutrophils % 58.7 %; Platelet Count 222 10^3/uL (130-400); RBC 5.25 10^6/uL (4.36-5.78); RDW 18.9 % (11.8-14.1); WBC 4.19 10^3/uL (4.4-10.8)
[2024-06-20 08:53] LABS: ALT 23 U/L (16-63); AST 14 U/L (15-37); Alkaline Phosphatase 96 U/L (46-116); Anion Gap 7.7 mmol/L (3-11); BUN 17 mg/dL (7-18); Bilirubin, Total 1.76 mg/dL (0.2-1.0); CO2 27.3 mmol/L (21.0-32.0); Calcium 9.5 mg/dL (8.5-10.1); Chloride 102 mmol/L (98-107); Estimated GFR 95.18 (mL/min/1.73m2); Glucose 88 mg/dL (74-106); Potassium 4.2 mmol/L (3.5-5.1); Sodium 137 mmol/L (136-145)
== END 2024-06-20 08:42 | disposition home or self-care (01) ==
LOC: LBO 08:41
PROVIDERS: Visit Provider Nurse Practitioner Family
DX: C18.4 Malignant neoplasm of transverse colon (principal)
CPT/HCPCS: 36415; 80053; 85025

== ENCOUNTER 2024-06-27 21:48 | Outpatient (CLI) | payer BC, SELFPAY ==
[2024-06-27 16:39] LABS: ALT 34 U/L (16-63); AST 15 U/L (15-37); Albumin 3.8 g/dL (3.4-5.0); Alkaline Phosphatase 99 U/L (46-116); Anion Gap 4.2 mmol/L (3-11); BUN 11 mg/dL (7-18); Bilirubin, Total 1.59 mg/dL (0.2-1.0); CO2 29.8 mmol/L (21.0-32.0); Calcium 9.3 mg/dL (8.5-10.1); Chloride 106 mmol/L (98-107); Estimated GFR 95.18 (mL/min/1.73m2); Glucose 88 mg/dL (74-106); Potassium 4.1 mmol/L (3.5-5.1); Sodium 140 mmol/L (136-145); Total Protein 7.5 g/dL (6.4-8.2)
== END 2024-06-27 21:49 | disposition home or self-care (01) ==
LOC: LBO 06-29 21:48
PROVIDERS: Visit Provider Internal Medicine Hematology & Oncology
DX: C18.4 Malignant neoplasm of transverse colon (principal)
CPT/HCPCS: 36415; 80053

== ENCOUNTER 2024-07-14 15:46 | Outpatient (CLI) | payer BC, SELFPAY ==
[2024-07-14 16:14] LABS: Abs Immature Grans 0.01 10^3/uL (0.0-0.06); Absolute Basophil Count 0.03 10^3/uL (0.0-0.2); Absolute Eosinophil Count 0.08 10^3/uL (0.0-0.7); Absolute Neutrophil Count 3.03 10^3/uL (1.2-6.7); Basophils % 0.6 %; Eosinophils % 1.6 %; HCT 43.7 % (40.0-50.0); Immature Grans % 0.2 %; Lymphocytes % 28.9 %; MCH 25.6 pg (27.0-33.0); MCV 80 fL (80-95); MPV 9.1 fL (8.0-11.0); Monocytes % 6.2 %; Neutrophils % 62.5 %; Platelet Count 237 10^3/uL (130-400); RBC 5.46 10^6/uL (4.36-5.78); RDW 17.4 % (11.8-14.1); RDW-SD 50.5 fL; WBC 4.85 10^3/uL (4.4-10.8)
[2024-07-14 17:09] LABS: ALT 48 U/L (16-63); AST 20 U/L (15-37); Alkaline Phosphatase 130 U/L (46-116); Anion Gap 8.4 mmol/L (3-11); BUN 12 mg/dL (7-18); Bilirubin, Total 1.52 mg/dL (0.2-1.0); CO2 29.6 mmol/L (21.0-32.0); Calcium 9.4 mg/dL (8.5-10.1); Chloride 104 mmol/L (98-107); Estimated GFR 95.18 (mL/min/1.73m2); FREE T4 0.95 ng/dL (0.76-1.46); Glucose 86 mg/dL (74-106); Potassium 4.2 mmol/L (3.5-5.1); Sodium 142 mmol/L (136-145); TSH 2.22 uIU/Ml (0.36-3.74); Total Protein 7.8 g/dL (6.4-8.2)
[2024-07-15 19:05] LABS: CEA <0.5 ng/mL (See Note)
== END 2024-07-14 15:47 | disposition home or self-care (01) ==
LOC: LBO 15:48
PROVIDERS: Visit Provider Internal Medicine Hematology & Oncology
DX: C18.4 Malignant neoplasm of transverse colon (principal); Z79.899 Other long term (current) drug therapy
CPT/HCPCS: 36415; 80053; 82378; 84439; 84443; 85025

== ENCOUNTER 2024-08-28 01:58 | Outpatient (CLI) | payer BC, SELFPAY ==
[2024-08-28 09:51] LABS: Abs Immature Grans 0.01 10^3/uL (0.0-0.06); Absolute Basophil Count 0.03 10^3/uL (0.0-0.2); Absolute Eosinophil Count 0.09 10^3/uL (0.0-0.7); Absolute Lymphocyte Count 1.38 10^3/uL (1.2-3.4); Absolute Monocyte Count 0.42 10^3/uL (0.1-0.8); Absolute Neutrophil Count 2.47 10^3/uL (1.2-6.7); Basophils % 0.7 %; HCT 39.9 % (40.0-50.0); HGB 12.6 g/dL (13.5-17.5); Immature Grans % 0.2 %; Lymphocytes % 31.4 %; MCHC 31.6 % (32.0-36.0); MCV 82 fL (80-95); MPV 8.6 fL (8.0-11.0); Monocytes % 9.5 %; Neutrophils % 56.2 %; Platelet Count 225 10^3/uL (130-400); RBC 4.84 10^6/uL (4.36-5.78); RDW 14.7 % (11.8-14.1); RDW-SD 43.8 fL
[2024-08-28 10:14] LABS: ALT 28 U/L (16-63); AST 17 U/L (15-37); Albumin 3.7 g/dL (3.4-5.0); Alkaline Phosphatase 136 U/L (46-116); Anion Gap 8.5 mmol/L (3-11); BUN 12 mg/dL (7-18); Bilirubin, Total 1.45 mg/dL (0.2-1.0); CO2 27.5 mmol/L (21.0-32.0); Calcium 9.2 mg/dL (8.5-10.1); Chloride 109 mmol/L (98-107); Estimated GFR 95.18 (mL/min/1.73m2); Glucose 125 mg/dL (74-106); Sodium 145 mmol/L (136-145); Total Protein 7.6 g/dL (6.4-8.2)
[2024-08-28 11:30] LABS: Bilirubin, Direct 0.3 mg/dL (0.0-0.2)
[2024-08-28 18:28] LABS: CEA <0.5 ng/mL (See Note)
== END 2024-08-28 01:59 | disposition home or self-care (01) ==
LOC: LBO 01:58
PROVIDERS: Visit Provider Internal Medicine Hematology & Oncology
DX: C18.4 Malignant neoplasm of transverse colon (principal)
CPT/HCPCS: 36415; 80053; 82248; 82378; 85025

== ENCOUNTER 2024-10-02 10:33 | Outpatient (CLI) | payer BC, SELFPAY ==
[2024-10-02 11:10] LABS: ALT 25 U/L (16-63); AST 18 U/L (15-37); Albumin 3.9 g/dL (3.4-5.0); Alkaline Phosphatase 125 U/L (46-116); BUN 17 mg/dL (7-18); Bilirubin, Total 2.84 mg/dL (0.2-1.0); CREATININE 1.1 mg/dL (0.70-1.30); Calcium 9.1 mg/dL (8.5-10.1); Chloride 107 mmol/L (98-107); Estimated GFR 84.89 (mL/min/1.73m2); Glucose 103 mg/dL (74-106); Potassium 4.1 mmol/L (3.5-5.1); Sodium 142 mmol/L (136-145); Total Protein 7.6 g/dL (6.4-8.2)
[2024-10-07 11:11] LABS: UGT1A1 Phenotype Poor metabolizer
== END 2024-10-02 10:34 | disposition home or self-care (01) ==
LOC: LBO 10:33
PROVIDERS: Visit Provider Internal Medicine Hematology & Oncology
DX: C18.4 Malignant neoplasm of transverse colon (principal); E80.6 Other disorders of bilirubin metabolism
CPT/HCPCS: 36415; 80053; 81350

== ENCOUNTER 2024-10-09 12:36 | Outpatient (CLI) | payer BC, SELFPAY ==
[2024-10-09 11:26] LABS: Abs Immature Grans 0.01 10^3/uL (0.0-0.06); Absolute Basophil Count 0.01 10^3/uL (0.0-0.2); Absolute Eosinophil Count 0.07 10^3/uL (0.0-0.7); Absolute Lymphocyte Count 1.25 10^3/uL (1.2-3.4); Absolute Monocyte Count 0.32 10^3/uL (0.1-0.8); Basophils % 0.2 %; Eosinophils % 1.7 %; HCT 38.1 % (40.0-50.0); HGB 12.3 g/dL (13.5-17.5); Immature Grans % 0.2 %; Lymphocytes % 30.8 %; MCH 26.7 pg (27.0-33.0); MCHC 32.3 % (32.0-36.0); MCV 83 fL (80-95); MPV 8.6 fL (8.0-11.0); Monocytes % 7.9 %; Neutrophils % 59.2 %; Platelet Count 197 10^3/uL (130-400); RDW 14.6 % (11.8-14.1); RDW-SD 43.3 fL; WBC 4.06 10^3/uL (4.4-10.8)
[2024-10-09 11:42] LABS: ALT 20 U/L (16-63); AST 12 U/L (15-37); Albumin 3.6 g/dL (3.4-5.0); Alkaline Phosphatase 113 U/L (46-116); Anion Gap 7.3 mmol/L (3-11); BUN 9 mg/dL (7-18); CO2 28.7 mmol/L (21.0-32.0); CREATININE 1.2 mg/dL (0.70-1.30); Calcium 8.8 mg/dL (8.5-10.1); Chloride 105 mmol/L (98-107); Estimated GFR 76.48 (mL/min/1.73m2); Glucose 105 mg/dL (74-106); Potassium 3.9 mmol/L (3.5-5.1); Sodium 141 mmol/L (136-145); Total Protein 7.1 g/dL (6.4-8.2)
== END 2024-10-09 12:37 | disposition home or self-care (01) ==
LOC: LBO 12:37
PROVIDERS: Referring Provider Internal Medicine Hematology & Oncology; Visit Provider Internal Medicine Hematology & Oncology
DX: C18.4 Malignant neoplasm of transverse colon (principal)
CPT/HCPCS: 36415; 80053; 85025